=== PATIENT | male | born 1955 | race Caucasian/White ===

== ENCOUNTER 2018-05-01 16:30 | Inpatient (IN) | payer MEDICAID ==
[~2018-05-01] VITALS: Ht 170.2 cm; Wt 57.2 kg
[~2018-05-01 16:30] MED LIST: ACETAMINOPHEN325 M1 PO; AMLODIPINE; ASPIRIN325 PO; BENADRYL25 MG PO; CARVEDILOL PO; CARVEDILOL12.5 MG PO; CLARITIN10 MG PO; DOXYCYCLINE 10100 M1 PO; EZETIMIBE; HUMALOG100 UNIT/1 SUBQ; HYDROCHLOROTHIA25 M1 PO; LANTUS SUBQ; LISINOPRIL; LISINOPRIL20 MG PO; MAGNESIUM OXID400 MG PO; NEPHROCAPS SOFT1 CAP PO; NIACIN500 MG PO; NIASPAN PO; SENNA8.6 MG PO; VICODIN PO
[2018-05-01 16:33] VITALS: BP 142/124
[2018-05-01] MEDS ORDERED: NORVASC10 MG PO (16:35)
[2018-05-01] MEDS ORDERED: PRAVACHOL40 MG PO (16:36)
[2018-05-01] MEDS ORDERED: FLOMAX0.4 MG PO (16:36)
[2018-05-01 17:52] LABS: HEMATOCRIT 31.9 % (42.0-52.0); HEMOGLOBIN 10.8 gm/dL (14.0-18.0); MCH 27.9 pg (26.0-34.0); MCHC 33.9 g/dL (28.0-37.0); MCV 82.1 fL (80.0-100.0); NUCLEATED RBCS 0 /100WBC; PLATELET COUNT* 138 thou/uL (150-400); RBC 3.89 mil/uL (4.50-6.00); RDW-CV 15.2 % (10.5-14.5); WBC 9.2 thou/uL (4.0-11.0)
[2018-05-01 18:00] LABS: APTT 29.6 Seconds (25.0-31.3); INR 1.2; PROTIME 12.6 Seconds (9.20-11.50)
[2018-05-01 18:05] LABS: URINE BILIRUBIN NEGATIVE (Negative); URINE BLOOD 1+ (Negative); URINE CLARITY CLEAR; URINE COLOR YELLOW; URINE GLUCOSE-RANDOM 3+ (Negative); URINE KETONES 1+ (Negative); URINE LEUKOCYTES-REFLEX NEGATIVE (Negative); URINE NITRITE-REFLEX NEGATIVE (Negative); URINE PROTEIN 2+ (Negative); URINE SPECIFIC GRAVITY 1.015 (1.005-1.030); URINE UROBILINOGEN 0.2 E.U./dl (0.2-1.0)
[2018-05-01 18:11] LABS: CALCIUM 7.8 mg/dL (8.5-10.1); CREATININE 2.2 mg/dL (0.6-1.3)
[2018-05-01 18:12] LABS: POTASSIUM 2.3 mmol/L (3.5-5.1)
[2018-05-01 18:16] LABS: BACTERIA-REFLEX None Seen /HPF (None Seen); SQUAMOUS 0-3 Few /LPF (0-3); URINE RBC 0-2 Rare /HPF (0-2); URINE WBC-REFLEX 0-5 Rare /HPF (0-5)
[2018-05-01 18:17] LABS: ALBUMIN 2.2 g/dL (3.4-5.0); TOTAL BILIRUBIN 0.7 mg/dL (<0.1-1.0); TOTAL PROTEIN 4.7 g/dL (6.4-8.2); TROPONIN-I LEVEL 0.14 ng/mL (<0.06)
[2018-05-01 18:17] LABS: CASTS None Seen /LPF (None Seen); CRYSTALS None Seen /LPF (None Seen)
[2018-05-01 18:32] LABS: BE -10.8 mmol/L (-2 to +3); HCO3 17.2 mmol/L (22.0-26.0); PCO2 46.3 mmHg (35.0-45.0)
[2018-05-01 18:35] LABS: PO2 > 488.8 mmHg (75.0-100.0); pH 7.187 (7.340-7.450)
[2018-05-01 18:38] LABS: ABSOLUTE LYMPHOCYTES 1.3 thou/uL (0.8-5.3); ABSOLUTE MONOCYTES 0.1 thou/uL (0.0-1.2); ABSOLUTE NEUTROPHILS 7.8 thou/uL (1.6-8.1); BURR CELLS 4+; PLATELET ESTIMATE ADEQUATE
--- NOTE | 2018-05-01 19:15 | NUR ---
ET TUBE PULLED BACK 24 AT THE LIP BY RESPIRATORY THERAPY. LUNG SOUNDS EQUAL BILATERALLY AND NO GURGGLING NOTED OVER STOMACH. O2 SATS REMAIN >98%
[2018-05-01 19:28] VITALS: BP 55/37
[2018-05-01 21:00] LABS: CALCIUM 7.6 mg/dL (8.5-10.1); CREATININE 2.3 mg/dL (0.6-1.3)
[2018-05-01 21:09] LABS: POTASSIUM 2.3 mmol/L (3.5-5.1)
--- NOTE | 2018-05-01 22:23 | NUR ---
SPOKE WITH DR MELENDEZ VIA TELEPHONE, ET TUBE PLACMENT VIA CXR IN [facility].
[2018-05-01 22:59] VITALS: BP 108/66
[2018-05-01 23:04] LABS: pH 7.186 (7.340-7.450)
[2018-05-01 23:05] LABS: HCO3 9.6 mmol/L (22.0-26.0); PO2 191.9 mmHg (75.0-100.0)
[2018-05-01 23:27] VITALS: BP 100/56
[2018-05-01 23:42] VITALS: BP 106/59
[2018-05-01 23:57] VITALS: BP 109/65
[2018-05-02] VITALS (58 sets, daily range): BP systolic 70–201; BP diastolic 42–109
[2018-05-02 00:48] LABS: CALCIUM 6.7 mg/dL (8.5-10.1); CREATININE 2.2 mg/dL (0.6-1.3); TOTAL BILIRUBIN 0.9 mg/dL (<0.1-1.0); TOTAL PROTEIN 4.7 g/dL (6.4-8.2)
[2018-05-02 00:52] LABS: POTASSIUM 2.3 mmol/L (3.5-5.1)
[2018-05-02 00:53] LABS: MAGNESIUM 1.3 mg/dL (1.8-2.4)
[2018-05-02 00:54] LABS: TROPONIN-I LEVEL 3.31 ng/mL (<0.06)
--- NOTE | 2018-05-02 01:46 | NUR ---
TMAX 90.9, WITHIN RANGE FOR HYPOTHERMIA COOLING PHASE, FLUID WARMER STOPPED AT THIS TIME, NS CONTINUES TO INFUSE 250CC/HR VIA INFUSION PUMP, AWAITING DELIVERY TO INITIATE IVF CHANGE 0.5NA CLORIDE WITH 25KCL AND 10MM PHOS, WILL STOP NS AND INITATE NEW IVF WHEN AVAILABLE.
[2018-05-02 02:06] LABS: HEMATOCRIT 37.9 % (42.0-52.0); MCH 27.5 pg (26.0-34.0); MCHC 33.7 g/dL (28.0-37.0); MCV 81.7 fL (80.0-100.0); RBC 4.64 mil/uL (4.50-6.00); RDW-CV 15.2 % (10.5-14.5); WBC 10.9 thou/uL (4.0-11.0)
[2018-05-02 02:09] LABS: HEMOGLOBIN 12.8 gm/dL (14.0-18.0)
[2018-05-02 03:27] LABS: BE -12.8 mmol/L (-2 to +3); PCO2 24.1 mmHg (35.0-45.0); pH 7.303 (7.340-7.450)
[2018-05-02 03:30] LABS: HCO3 11.7 mmol/L (22.0-26.0); PO2 184.1 mmHg (75.0-100.0)
[2018-05-02 03:50] LABS: ALBUMIN 1.7 g/dL (3.4-5.0); CALCIUM 6.8 mg/dL (8.5-10.1); CREATININE 2.3 mg/dL (0.6-1.3); POTASSIUM 3.1 mmol/L (3.5-5.1); TOTAL BILIRUBIN 0.7 mg/dL (<0.1-1.0); TOTAL PROTEIN 4.1 g/dL (6.4-8.2)
[2018-05-02 06:24] LABS: CK-MB MASS 168.1 ng/mL (<0.5-3.6); PHOSPHORUS* 4.4 mg/dL (2.5-4.9)
[2018-05-02 06:44] LABS: INR 1.3; PROTIME 13.5 Seconds (9.20-11.50)
[2018-05-02 07:09] LABS: APTT 39.1 Seconds (25.0-31.3)
[2018-05-02 08:54] LABS: AMP/METHAMP Negative (Negative); BARBITURATES Negative (Negative); BENZODIAZEPINES Negative (Negative); COCAINE Negative (Negative); METHADONE Negative (Negative); OPIATES Negative (Negative); PCP Negative (Negative); THC Negative (Negative)
[2018-05-02 09:35] LABS: BE -12.4 mmol/L (-2 to +3); HCO3 12.1 mmol/L (22.0-26.0); PCO2 24.5 mmHg (35.0-45.0); PO2 84.7 mmHg (75.0-100.0); pH 7.312 (7.340-7.450)
[2018-05-02 09:53] LABS: CALCIUM 6.9 mg/dL (8.5-10.1); CREATININE 2.4 mg/dL (0.6-1.3)
[2018-05-02 09:54] LABS: POTASSIUM 4.1 mmol/L (3.5-5.1)
[2018-05-02 12:39] LABS: CALCIUM 6.6 mg/dL (8.5-10.1); CREATININE 2.3 mg/dL (0.6-1.3); PHOSPHORUS* 2.6 mg/dL (2.5-4.9)
[2018-05-02 12:41] LABS: MAGNESIUM 0.8 mg/dL (1.8-2.4)
[2018-05-02 16:13] LABS: CALCIUM 6.7 mg/dL (8.5-10.1); CREATININE 2.3 mg/dL (0.6-1.3); MAGNESIUM 1.2 mg/dL (1.8-2.4); PHOSPHORUS* 2.6 mg/dL (2.5-4.9); POTASSIUM 4.1 mmol/L (3.5-5.1)
--- NOTE | 2018-05-02 17:31 | NUR ---
PATIENT PROGRESSING TOWARDS GOALS. CURRENTLY MAINTAINING HYPOTHERMIA, REWARMING TO INITIATE AT 0100 ON 05/03. CURRENTLY SEDATED ON 1MG/HR VERSED FOR SEDATION. OPENES EYES TO STIMULATION. MOVES RIGHT ARM SPONTANEOUSLY. DOES NOT FOLLOW COMMANDS AT THIS TIME. PUPILS MORE EQUAL (3+) AND BRISK AT THIS TIME. NEURO STATED THEY WILL ORDER EEG WHEN REWARMED. TRACING SINUS ARRHYTHMIA TO SINUS RHYTHM WITH CONTROLLED RATE THIS SHIFT. MINIMAL ECTOPY NOTED. REMAINS IN NEOSYNEPHRINE AND LEVOPHED AT THIS TIME PER MED TITRATION RECORDS. FLUID CHALLENGE GIVEN PER PULMONARY AND HOSPITALIST FOR PRESSURES/ELEVATED LACTIC ACID. BMPS COMPLETED Q4H PER NEPHROLOGY. MAGNESIUM BEING REPLACED PER THEM. PATIENT OLIGURIC THIS SHIFT. SEE I&O DOCUMENTATION. REMAINS ON INSULIN GTT AT 3 UNITS/HR. BLOOD SUGARS MORE CONTROLLED. ANION GAP CLOSED, BICARB REMAINS LOW. BLOOD SUGARS TAKEN BY CENTRAL LINE FOR POOR PERIPHERAL PERFUSION/HYPOTHERMIA. TUBES/LINES REMAIN IN PLACE THIS SHIFT. 200 ML GREEN/BILE OUTPUT OUT OF OG TUBE NOTED. MICROTURNED Q2H FOR SKIN INTEGRITY R/T INSTABILITY. PATIENT'S BROTHER HERE TODAY. PER HIM, HE IS THE ONLY LIVING SIBLING. PATIENT HAS NEVER BEEN OR HAD KIDS. PATIENT MADE DNR AT THIS TIME BY FAMILY. PATIENT CURRENTLY LIVES IN A HOME WITH NO ELECTRICITY OR HEAT. HIS FAMILY PAYS HIS BILLS WHEN THEY CAN, BUT HE ROUTINELY REFUSES PLACEMENT OR OTHER ASSISTANCE. HIS [id number] STATED "HE WAS SUPPOSED TO GO TO A DOCTOR'S APPOINTMENT ON FRIDAY, BUT WE FEEL LIKE HE DIDN'T GO BECAUSE HE WAS AFRAID THEY WOULD SEND HIM TO THE HOSPITAL OR PLACE HIM SOMEWHERE." WHEN PATIENT WAS FOUND, HE WAS NAKED WITH JUST BLANKET ON AND WAS SEVERELY HYPOTHERMIC. FOUND BY EXTENDED FAMILY WHO CALLED EMS. PATIENT HAS BEEN UNEMPLOYED FOR AN EXTENDED AMOUNT OF TIME. PER HIS BROTHER, HIS FATHER TOOK CARE OF HIM UNTIL HE 3 YEARS AGO. PATIENT'S FAMILY UPDATED ON PLAN OF CARE AND PROCESS OF REWARMING OVERNIGHT. NO ACUTE CONCERNS NOTED AND THEY ARE IN AGREEMENT WITH CURRENT PLAN OF CARE.
[2018-05-02 21:12] LABS: CALCIUM 6.8 mg/dL (8.5-10.1); CREATININE 2.2 mg/dL (0.6-1.3); MAGNESIUM 1.8 mg/dL (1.8-2.4); PHOSPHORUS* 2.8 mg/dL (2.5-4.9); POTASSIUM 4.5 mmol/L (3.5-5.1)
[2018-05-03] VITALS (11 sets, daily range): BP systolic 80–133; BP diastolic 46–83
[2018-05-03 00:55] LABS: ABSOLUTE BASOPHILS 0.1 thou/uL (0.0-0.2); ABSOLUTE EOSINOPHILS 0.1 thou/uL (0.0-0.7); ABSOLUTE LYMPHOCYTES 1.2 thou/uL (0.8-5.3); ABSOLUTE MONOCYTES 0.4 thou/uL (0.0-1.2); ABSOLUTE NEUTROPHILS 8.3 thou/uL (1.6-8.1); BASOPHILS 1.1 %; EOSINOPHILS 0.5 %; HEMATOCRIT 27.6 % (42.0-52.0); LYMPHOCYTES 12.1 %; MCH 28.4 pg (26.0-34.0); MCHC 35.9 g/dL (28.0-37.0); MCV 79.2 fL (80.0-100.0); MPV 9.1 fl. (7.2-11.1); NUCLEATED RBCS 0 /100WBC; POLYS 82.3 %; RBC 3.48 mil/uL (4.50-6.00); RDW-CV 15.4 % (10.5-14.5); WBC 10.1 thou/uL (4.0-11.0)
[2018-05-03 01:14] LABS: HEMOGLOBIN 9.9 gm/dL (14.0-18.0); PLATELET COUNT* 118 thou/uL (150-400)
[2018-05-03 01:20] LABS: ALBUMIN 1.6 g/dL (3.4-5.0); CALCIUM 7.1 mg/dL (8.5-10.1); CREATININE 2.3 mg/dL (0.6-1.3); MAGNESIUM 1.7 mg/dL (1.8-2.4); PHOSPHORUS* 2.8 mg/dL (2.5-4.9); POTASSIUM 4.3 mmol/L (3.5-5.1); TOTAL BILIRUBIN 0.4 mg/dL (<0.1-1.0); TOTAL PROTEIN 4.3 g/dL (6.4-8.2)
[2018-05-03 01:22] LABS: TROPONIN-I LEVEL 7.81 ng/mL (<0.06)
[2018-05-03 01:31] LABS: APTT 45.1 Seconds (25.0-31.3); INR 1.3; PROTIME 12.9 Seconds (9.20-11.50)
[2018-05-03 05:59] LABS: CALCIUM 6.9 mg/dL (8.5-10.1); CREATININE 2.3 mg/dL (0.6-1.3); MAGNESIUM 2.4 mg/dL (1.8-2.4); POTASSIUM 4.5 mmol/L (3.5-5.1)
--- NOTE | 2018-05-03 07:27 | NUR ---
SLOW PROGRESSION TOWARDS GOALS, CONTINUES THERAPEUTIC HYPOTHERMIA PROTOCOL, TMAX CORE 96.8, OPENS EYES INTERMITTENTLY TO TACTILE STIMULI, NO VISUAL TRACKING, OCCASIONAL NONPURPOSFUL MOVEMENT UPPER AND LOWER EXTREMITIES, VERSED GTT TITRATED FOR SEDATION FROM 1MG/HR TO 3MG/HR, NSR TRACING MEDICAL ASSISTANT CARDIOLOGY, NO ECTOPY NOTED, Q2HOUR BLOOD GLUCOSE LEVELS OBTAINED FROM ARTERIAL LINE R/T POOR CAPILLARY REFILL, INSULIN GTT TITRATED FROM 3UNITS/HOUR TO 0.5 UNIT HOUR DURING SHIFT, ANION GAP REMAINS CLOSED, CONTINUED BMP AND MAG LEVELS [id number], SERMUM MAGNESIUM LEVEL 1.7, 2GM MAGNESIUM IV VIA INFUSION PUMP REPLACEMENT ADMINISTERED, SERUM MAGNESIUM LEVEL INCREASED 2.4, SAO2 =>99 PERCENT THROUGHOUT NOC, NO VENTILATOR CHANGES BY RT DURING SHIFT, POSSIBLE ET TUBE CUFF LEAK, ED DOCTOR TO EVALUATE, TEMP PROBE SOLOMON CATHETER PATENT TO DD OLGURIC 30CC DES URINE OUTPUT. VERBAL BEDSIDE REPORT GIVEN TO NAY GAR.
[2018-05-03 07:47] LABS: BE -7.1 mmol/L (-2 to +3); HCO3 16.1 mmol/L (22.0-26.0); PCO2 25.3 mmHg (35.0-45.0); PO2 106.5 mmHg (75.0-100.0); pH 7.421 (7.340-7.450)
[2018-05-03 09:08] LABS: CALCIUM 7.1 mg/dL (8.5-10.1); CREATININE 2.4 mg/dL (0.6-1.3); MAGNESIUM 2.1 mg/dL (1.8-2.4); PHOSPHORUS* 3.2 mg/dL (2.5-4.9); POTASSIUM 5.1 mmol/L (3.5-5.1)
--- NOTE | 2018-05-03 09:09 | CON ---
[address] [address] CONSULTATION Name: TIANNA GALEANA Room: [address] IN M.R.#: [id number] Admission: 05/01/18 Attend Phys: Marly Manning MD Discharge: Date of : 55 Report #: [id number] THIS REPORT FOR: //name// CC: STEPHANIE physician/PCP Marly Manning REASON FOR CONSULTATION: At the request of Dr. Manning for acute kidney injury, diabetic ketoacidosis. HISTORY OF PRESENT ILLNESS: The patient is a 62-year-old gentleman with a known history of insulin-dependent diabetes mellitus. He was admitted to the hospital yesterday after he was found unresponsive at home by the EMS. The EMS was apparently alerted by the friends or family that the patient has not been seen for some time. He was found to be unresponsive, found lying on the floor with no clothes, only a blanket on. He was hypothermic. There was no pulse. He was resuscitated with CPR was performed. Epinephrine and atropine were given, dopamine was started. The patient was brought to the ER. In the ER, on evaluation, he was found to be markedly hypothermic with a documented temperature of 25.3 centigrade. His blood pressure was reasonably stable at that time, he was found to be in diabetic ketoacidosis with profound respiratory and metabolic acidosis. Blood sugars above 600. Review of the previous history also shows that the patient has had similar presentations in the past with diabetic ketoacidosis, last admission here in this hospital was in 04/2017. Since admission, the patient has had 2 episodes of pulseless electrical activity. He was resuscitated with epinephrine and CPR. He is presently intubated and sedated on 2 pressors, Levophed and Corey-Synephrine. His dopamine is off right now, he has only made 100 mL of urine overnight. He is on 80% FiO2. He is being slowly rewarmed, temperature at this time is 91 Fahrenheit. PAST MEDICAL HISTORY: History of diabetes mellitus, hypertension, dyslipidemia, poor care in the past admissions for similar complaints in the past, history of encephalopathy, acute kidney injury, hyperkalemia, lactic acidosis in the past. HOME MEDICATIONS: Not known well except what is mentioned in the records, it mentions Lispro insulin, Lantus, aspirin, lisinopril, loratadine, niacin, magnesium oxide, Coreg, amlodipine, tamsulosin and pravastatin. PERSONAL, SOCIAL AND FAMILY HISTORY: Unobtainable from the patient, he is intubated and sedated. ALLERGIES: HE IS REPORTEDLY ALLERGIC TO LIPITOR. REVIEW OF SYSTEMS: Besides mentioned above, [place] [address] CONSULTATION Name: TIANNA GALEANA Room: [address] IN [facility]#: [id number] Admission: 05/01/18 Attend Phys: aMrly Manning MD Discharge: Date of : 55 Report #: [id number] PHYSICAL EXAMINATION: GENERAL: The patient is critically sick.unequal pupil size, larger on right VITAL SIGNS: His blood pressure has been in the 70s-80s overnight. He has had 2 episodes of cardiac arrest overnight, PEA arrest both times. LUNGS: Diminished and coarse in the bases bilaterally. SKIN: Appears dry. EXTREMITIES: Cold and clammy. Multiple skin lesions are seen on both arms and legs. He has a right-sided IJ central line. He has a Villatoro catheter in place, which shows dirty cloudy urine. LABORATORY DATA: Reviewed from this morning, his white count is 10.9, hemoglobin is 12.8, platelets are 201,000. Blood gas on admission showed pH of 7.187, pCO2 of 46, pO2 of 488, bicarbonate of 17.2, with a base excess of -10.8, this morning it has improved to 7.303, pCO2 of 24, pO2 of 184, bicarbonate of 11.7. Metabolic panel on admission, creatinine was 2.2, potassium 2.3, glucose level 686, anion gap 26, BUN 38, albumin 2.2. Liver function tests: AST 72, ALT 43, alkaline phosphatase is 134. Troponin 0.14 this morning. Electrolytes: Sodium 144, potassium improved to 3.1, chloride 107, bicarbonate 16, BUN 37, anion gap of 21, slowly improving. Creatinine 2.3, relatively stable. Glucose 428, calcium 6.8. AST 83, ALT 47, albumin 1.7, phosphorus levels checked this morning at 4.4. Troponins are slowly creeping up from 0.14 on admission to 3.76 now. Urinalysis: PH of 5.5, with 2+ protein, ketones and blood, leukocyte esterase negative. As expected, has significant glucosuria. IMAGING STUDIES: A CT of the head has been negative for any acute intracranial pathology. Chest x-rays have been performed serially since admission Chronic lung opacities with bilateral lower lobe diffuse opacities have been noticed. No pneumothorax or consolidating infiltrates have been noted yet. A V/Q scan was performed, which demonstrated low probability perfusion scan for pulmonary embolism. ASSESSMENT: 1. Acute diabetic ketoacidosis. 2. Anion gap metabolic acidosis secondary to the same. 3. Out of hospital cardiac arrest. The patient found down at home, pulseless, was resuscitated, 2 episodes of pulseless arrest since admission. 4. Acute kidney injury. Baseline creatinine 1.6-1.7. NAYANA secondary to hypothermia, volume depletion , possible rhabdomyolysis and ?? sespsis 5. Toxic/metabolic encephalopathy. 6. Hypothermia. 7. Poorly controlled diabetes at baseline. 8. Hypertension. 9. Recurrent admissions for similar problems in the past. 10. Concern for aspiration pneumonitis also. 11 Possible CVA, initial CT head negative [address] [place] [address] CONSULTATION Name: KERVINTIANNA Room: [address] IN [facility]#: [id number] Admission: 05/01/18 Attend Phys: Marly Manning MD Discharge: Date of : 55 Report #: [id number] PLAN: 1. The patient is critically sick at this moment. 2. Has received significant fluid resuscitation overnight with close to 4-5 liters. 3. Made 1400 mL of urine after placement of Villatoro initially suggesting a possible contribution to acute kidney injury from urine retention also. 4. He is presently oliguric based on urine output overnight. 5. Prognosis remains extremely guarded in the present situation. 6. Continue the insulin drip. 7. Continue the pressors as tolerated. 8. Change IV fluids to D5 with half NS with 20 mEq of KCl at 75 mL per hour. 9. Labs including metabolic panel and phosphorus levels every 4 hours. Anticipate his phosphorus levels may drop. 10. Anticipate his renal function will worsen over the next day or two. 11. Respiratory arrest, on ventilator now. 12. Overall prognosis remains extremely guarded. We will follow along closely. Thank you for the referral. Discussed with Dr. Manning personally. <ELECTRONICALLY SIGNED> By: Yahir Erickson MD 05/03/1809 0724 [id number] Erickson MD /nt
--- NOTE | 2018-05-03 10:07 | CON ---
[address] [address] CONSULTATION Name: TIANNA GALEANA Room: [address] IN M.R.#: [id number] Admission: 05/01/18 Attend Phys: Marly Manning MD Discharge: Date of : 55 Report #: [id number] THIS REPORT FOR: //name// CC: [facility] physician/PCP Marly Manning CARDIOLOGY CONSULTATION HISTORY OF PRESENT ILLNESS: I was asked to see the patient by Dr. Marly Manning for evaluation and treatment of a cardiac arrest. This gentleman is intubated and sedated on the ventilator and unresponsive. He was unresponsive even before being sedated. He was found down at home. It is not known how long he was down. He was in full cardiac arrest, I believe the mechanism was asystole. He was naked on his floor with a blanket over him. He has had a similar episode about a year ago when he was found in a chair. He cannot give a history. I do not have any access to any other records at this point. He apparently is diabetic as he had a blood sugar greater than 600 when he was admitted. He is known to have high blood pressure. He has insulin-dependent diabetes. He has hypercholesterolemia and benign prostatic hypertrophy. He was resuscitated at home and brought to the hospital. He had another cardiac arrest of uncertain type last night. I cannot find in the record exactly what it was. The nurse said she was told that it was PDA or EMD; however, he got 2 doses of epinephrine and it resolved. He is currently on Levophed drip. Other problems appear to be a CVA. CT of his head without contrast was negative. He has not had one with contrast nor has he had an MRI as yet. His lactic acid was elevated at 4.9. His creatinine was 2.2. His NT-proBNP was elevated at 1410. Initial troponin was 0.14, but subsequently his troponin elevated to 3.76 at 1:50 a.m. this morning. His initial EKG from yesterday evening at 6:25 p.m. showed atrial fibrillation with slow ventricular response, heart rate was 62. There were nonspecific ST-T abnormalities. There was probable left ventricular hypertrophy. There was a possible incomplete right bundle-branch block. Other history cannot be obtained. He is completely unresponsive and there is no family to speak with. He apparently does not have any family or a DPOA. FAMILY HISTORY: Unobtainable. SOCIAL HISTORY: Unobtainable. REVIEW OF SYSTEMS: Unobtainable. His chest x-ray shows bilateral lower lobe predominant interstitial and airspace opacities representing either pneumonia or pulmonary edema or pulmonary hemorrhage. PHYSICAL EXAMINATION: GENERAL: He presents as a chronically ill appearing white male in no acute distress. He is intubated, sedated, on the ventil[place] [id number] CONSULTATION Name: TIANNA GALEANA David Room: [address] IN ..#: [id number] Admission: 05/01/18 Attend Phys: Marly Manning MD Discharge: Date of : 55 Report #: [id number] VITAL SIGNS: His pulse was 90, blood pressure was 100/60, respirations were 19 and regular, temperature was only about 90. Note his temperature when he came to the ER was 77 for uncertain reasons. HEENT: Of note is that he has a dilated right pupil. He does not have doll's eyes. His right pupil is unresponsive. His head is atraumatic. Eyes are clear. NECK: Supple. There is no jugular venous distention or hepatojugular reflux. Thyroid is not enlarged. There is no adenopathy. SKIN: Warm and dry. Mucous membranes are moist. LUNGS: Showed decreased breath sounds bilaterally in both bases. HEART: Revealed distant first and second heart sound. There was no S4, no S3. No murmurs, rubs, thrills, heaves or gallops. The rhythm was irregularly irregular and the rate was approximately 90. PMI is not displaced. ABDOMEN: Soft, flat, nontender. No palpable masses, no organomegaly. EXTREMITIES: Reveal no cyanosis, clubbing or edema. NEUROLOGIC: The patient was unresponsive and did not move any extremities. IMPRESSION: 1. Status post cardiac arrest yesterday evening. 2. Probable cerebrovascular accident. 3. Atrial fibrillation. 4. Hypothermia. 5. Diabetic ketoacidosis. 6. Possible lactic acidosis, at least elevated lactate levels. 7. Rhabdomyolysis. Note, his CPK was 1831. Note, his CK-MB was 168.1. 8. Possible myocardial infarction. 9. Acute respiratory failure. 10. Renal failure with an estimated GFR of only approximately 30 and a creatinine of 2.3. 11. Probable pneumonia. 12. Congestive heart failure. 13. Elevated troponin, possible myocardial infarction. RECOMMENDATION: I would continue his current support. He will need an MRI of his head. I would treat him with antibiotics as well. Treat his diabetes. He is being warmed with a warming blanket. I would keep him around 90-93 degrees because of his recent cardiac arrest. I will have Renal see him about his renal failure. PROGNOSIS: Note this man's prognosis is guarded at best. Overall, this prognosis is probably poor. [address] [place] [address] CONSULTATION Name: TIANNA GALEANA Room: [address] IN M.R.#: [id number] Admission: 05/01/18 Attend Phys: Marly Manning MD Discharge: Date of : 55 Report #: [id number] Thank you very much for asking me to see the patient. If there are any questions, please feel free to contact me. <ELECTRONICALLY SIGNED> By: Mitch Prater MD, FACMika 05/03/18 1007 0905 [id number]. Jorden Prater MD, FACMika /nt
--- NOTE | 2018-05-03 10:17 | CON ---
[address] [address] CONSULTATION Name: TIANNA GALEANA Room: [address] IN .R.#: [id number] Admission: 05/01/18 Attend Phys: Marly Manning MD Discharge: Date of : 55 Report #: [id number] THIS REPORT FOR: //name// CC: STEPHANIE physician/PCP Marly Manning DATE OF SERVICE: 05/02/2018 HISTORY OF PRESENT ILLNESS: The patient is a 62-year-old male who was found at home. When EMS arrived, the patient had a body temperature of 77 degrees. He was lying under a sheet with nothing on. When he came to the Emergency Room, his temperature was 25.3. The patient is now warmed to a temperature of 91.6. At 1:00 a.m. the warming process will begin. The patient came to the Emergency Room with blood sugar of 686. On the ventilator, the patient is sedated and has no spontaneous movements. PAST MEDICAL HISTORY: Acute renal failure, diabetic ketoacidosis, hyperlipidemia, hypertension. PAST SURGICAL HISTORY: Negative. MEDICATIONS: At home, amlodipine 10 mg daily, Flomax 0.4 mg daily, Pravachol 40 mg daily, Humalog and Lantus insulin, aspirin 325 mg daily, senna 8.6 mg daily, lisinopril 40 mg daily, Claritin 10 mg daily, niacin 500 mg at bedtime, magnesium oxide 400 mg b.i.d., Coreg 12.5 mg b.i.d. ALLERGIES: ATORVASTATIN. VITAL SIGNS: Temperature is 32.9, pulse rate 78, respiratory rate 18 on the ventilator, blood pressure 88/51, bedside pulse oximetry 99% on the ventilator. LABORATORY DATA: White blood cell count 10.9, hemoglobin 12.8, hematocrit 37.9, platelet count 201,000. INR 1.3. Urinalysis 2+ protein, 1+ ketones, 1+ blood, 3+ glucose. On arrival in the Emergency Room, the blood gas shows a pH of 7.186, pCO2 of 26, pO2 of 191, oxygen saturation 96.1%. Chemistry profile: Sodium 141, potassium 4.1, chloride 109, carbon dioxide 18, BUN 33, creatinine 2.3, glucose 178. Lactic acid 6.3, calcium 6.7. Toxicology screen negative. IMAGING STUDIES: CT scan of the head unremarkable. NEUROLOGIC: Pupils minimally reactive to light. Oculocephalic and corneal reflex is absent. There is no spontaneous movement of the extremities. The patient was examined while on a Versed drip. IMPRESSION: The patient will begin the warming protocol around 1:00 a.m., [place] [address] CONSULTATION Name: TIANNA GALEANA Room: [address] IN ..#: [id number] Admission: 05/01/18 Attend Phys: Marly Manning MD Discharge: Date of : 55 Report #: [id number] may not be warm enough tomorrow to do an electroencephalogram so this may have to wait until Friday. Obviously with such a low body temperature and diabetic ketoacidosis, his prognosis is very guarded. I will reevaluate the patient tomorrow morning. <ELECTRONICALLY SIGNED> By: Brooke Olvera DO 05/03/18 1017 1641 [id number] Olvera DO /nt
--- NOTE | 2018-05-03 13:59 | NUR ---
re: Pharmacy to manage TPN Orders given for pharmacy to dose TPN per Dr. Manning. Patient has been rewarmed after a CODE ICE and is intubated. Per calculations used actual body weight 56.2 kg and a stress factor of 1.8. Note mentions that patient has NAYANA so will adjust protein g/kg/day need. Protein= 56.2 g/24 hours, CHO= 362.5 g/24 hours, and fats= 82.2 g/24 hours. The TPN was adjusted to decrease the potassium chloride to 17 mEq/L as BMP showed potassium at high end of normal. Day 1 of TPN will be 30 mL/hr and then if tolerated will increase day 2 to 54 mL/hr. Thank you for this consult. Pharmacy will contiue to follow and monitor.
[2018-05-03 16:24] LABS: CREATININE 2.7 mg/dL (0.6-1.3); PHOSPHORUS* 3.5 mg/dL (2.5-4.9); POTASSIUM 5.3 mmol/L (3.5-5.1)
--- NOTE | 2018-05-03 17:18 | NUR ---
PT CARE ASSUMED AFTER REPORT. SR ON MONITOR. PT REINTUBATED THIS AM BECAUSE PREVIOUS CUFF WAS BLOWN. L ART LINE. SOLOMON TO DD WITH ONLY 70CC OUT THIS SHIFT. LEVOPHED TITRATED DOWN. EVON AND VERSED TITRATED OFF. INSILIN GTT D/C'D. NO S/S OF PAIN. NOT PROGRESSING TOWARDS GOALS.
[2018-05-04] VITALS (61 sets, daily range): BP systolic 84–127; BP diastolic 46–66
[2018-05-04 04:34] LABS: HEMATOCRIT 20.7 % (42.0-52.0); MCH 28.2 pg (26.0-34.0); MCHC 35.2 g/dL (28.0-37.0); MCV 80.2 fL (80.0-100.0); MPV 10.3 fl. (7.2-11.1); RBC 2.58 mil/uL (4.50-6.00); RDW-CV 16.3 % (10.5-14.5); WBC 9.8 thou/uL (4.0-11.0)
[2018-05-04 04:45] LABS: HEMOGLOBIN 7.3 gm/dL (14.0-18.0)
[2018-05-04 05:06] LABS: ALBUMIN 1.3 g/dL (3.4-5.0); CALCIUM 7.2 mg/dL (8.5-10.1); CREATININE 3.1 mg/dL (0.6-1.3); PHOSPHORUS* 3.8 mg/dL (2.5-4.9); POTASSIUM 4.8 mmol/L (3.5-5.1); TOTAL BILIRUBIN 0.4 mg/dL (<0.1-1.0); TOTAL PROTEIN 3.9 g/dL (6.4-8.2)
[2018-05-04 06:01] LABS: BE -5.8 mmol/L (-2 to +3); HCO3 18.2 mmol/L (22.0-26.0); PCO2 30.2 mmHg (35.0-45.0); pH 7.399 (7.340-7.450)
--- NOTE | 2018-05-04 07:00 | NUR ---
PROGRESSING TOWARDS GOALS, SEE COMPUTERIZED ASSESSMENT CHARTING FOR FURTHER DETAILS, OPENS EYES TO TACTILE AND VERBAL STIMULI, VISUAL TRACKING, LEFT EYE OPENING >RIGHT EYE, NODDING HEAD YES/NO TO SIMPLE QUESTIONS APPEARS APPROPRIATE WITH GIVEN EXTRA TIME TO RESPOND, GENERALIIZED WEAKNESS, BILAT HAND CRT ON [place] UNEQUAL LEFT HAND INFORMATICIST >RIGHT HAND, MOVING BILAT LOWER EXTREMITIES, BILAT WRIST RESTRAINTS INITATED FOR SAFETY, PT ATTEMPTING TO PULL AT ETT, EMOTIONAL SUPPORT PROVIDED, AFEBRILE, MAINTAINING TMAX WNL, REMAINS OLIGURIC, TEMP PROBE SOLOMON CATHETER PATENT TO DD 150CC DES URINE OUTPUT, REMAINS NSR TRACING HOUSE SITTER WIHTOUT ECTOPY NOTED. FULL BED BATH PROVIDED. REMAINS OFF SEDATION ALL SHIFT.
[2018-05-04 08:41] LABS: CALCIUM 7.3 mg/dL (8.5-10.1); CREATININE 3.2 mg/dL (0.6-1.3); PHOSPHORUS* 3.8 mg/dL (2.5-4.9); POTASSIUM 4.6 mmol/L (3.5-5.1)
--- NOTE | 2018-05-04 10:14 | EKG ---
[place] [address] ELECTROCARDIOGRAM REPORT Name: TIANNA GALEANA Room: [address] ADM IN M.R.#: [id number] Admission: 05/01/18 Attend Phys: Marly Manning MD Discharge: Date of : 55 Report #: [id number] THIS REPORT FOR: //name// [facility] ED Test Date: 2018-05-01 Test Time: 18:25:02 Pat Name: TIANNA GALEANA Department: Room: [facility] Gender: Director Of Cardiology Service Line: Manny ALMANZA : 1955 Requested By: Omkar Gomez Order Number: [id number] MD: Kevyn Leal Measurements Intervals [place] Rate: 62 P: [place]: QRS: -13 QRSD: 136 T: 7 QT: 658 QTc: 669 Interpretive Statements Atrial fibrillation Prolonged QT interval Compared to ECG 05/12/2017 21:04:45 Prolonged QT interval now present Sinus tachycardia no longer present Myocardial infarct finding no longer present Electronically Signed On 05-04-2018 10:13:52 [employer] TEST ENGINE[employer] by Kevyn Leal [email or web address] <ELECTRONICALLY SIGNED> By: Kevyn Leal MD, FACC 05/04/18 1013 1825 1825 Kevyn Leal MD, [facility] /EPI
--- NOTE | 2018-05-04 10:21 | EKG ---
[place] [address] ELECTROCARDIOGRAM REPORT Name: TIANNA GALEANA Room: [address] ADM IN M.R.#: [id number] Admission: 05/01/18 Attend Phys: Marly Manning MD Discharge: Date of : 55 Report #: [id number] THIS REPORT FOR: //name// [facility] Test Date: 2018-05-02 Test Time: 09:36:00 Pat Name: TIANNA GALEANA Department: Room: [address] Gender: M Campus Security Director: : 1955 Requested By: Mitch Prater Order Number: [id number] Reading MD: Kevyn Leal Measurements Intervals [place] Rate: 89 P: 64 [place]: 165 QRS: -55 QRSD: 86 T: 79 QT: 409 QTc: 498 Interpretive Statements Sinus rhythm Left anterior fascicular block Anterior infarct, old Electronically Signed On 05-04-2018 10:20:58 TABLEMAN by Kevyn Leal [email or web address] <ELECTRONICALLY SIGNED> By: Kevyn Leal MD, [facility] 05/04/18 1020 0936 0936 Kevyn Leal MD, FACC /EPI
--- NOTE | 2018-05-04 12:26 | EKG ---
[place] [address] ELECTROCARDIOGRAM REPORT Name: TIANNA GALEANA Room: [address] ADM IN M.R.#: [id number] Admission: 05/01/18 Attend Phys: Marly Manning MD Discharge: Date of : 55 Report #: [id number] THIS REPORT FOR: //name// [facility] Test Date: 2018-05-03 Test Time: 10:28:35 Pat Name: TIANNA GALEANA Department: Room: [address] Gender: M Opticianry Teacher: : 1955 Requested By: Mitch Prater Order Number: [id number] Reading MD: Kevyn Leal Measurements Intervals [place] Rate: 79 P: [place]: QRS: -45 QRSD: 83 T: 81 QT: 432 QTc: 496 Interpretive Statements Accelerated junctional rhythm low voltage Anterior infarct, old Compared to ECG 05/12/2017 21:04:45 Accelerated junctional rhythm now present Sinus no longer present Myocardial infarct finding still present Electronically Signed On 05-04-2018 12:25:53 CHIEF RELAY TESTER by Kevyn Leal [email or web address] <ELECTRONICALLY SIGNED> By: Kevyn Leal MD, [facility] 05/04/18 1225 1028 1028 Kevyn Leal MD, [facility] /EPI
--- NOTE | 2018-05-04 14:07 | NUR ---
WOUND NURSE: PATIENT SEEN TO ADDRESS LESIONS ON BILATERAL KNEES AND RIGHT LOWER LEG. PATIENT PRESENTS WITH MULTIPLE SMALL CIRIFORM LESIONS WHICH PRESENT WITH 1CM REDDISH-BROWN INTACT SCABS. THERE IS NO DRAINAGE OR PERIWOUND REDNESS, WARMTH, OR INDURATION NOTED. PLAN TO KEEP OPEN TO AIR LONG THE SCABS REMAIN STABLE AND INTACT.
[2018-05-04 16:32] LABS: HEMATOCRIT 22.7 % (42.0-52.0); HEMOGLOBIN 7.8 gm/dL (14.0-18.0); MCH 28.2 pg (26.0-34.0); MCHC 34.4 g/dL (28.0-37.0); MPV 9.2 fl. (7.2-11.1); RBC 2.76 mil/uL (4.50-6.00); RDW-CV 16.1 % (10.5-14.5); WBC 9.4 thou/uL (4.0-11.0)
[2018-05-04 16:41] LABS: CALCIUM 7.7 mg/dL (8.5-10.1); CREATININE 3.2 mg/dL (0.6-1.3); PHOSPHORUS* 3.9 mg/dL (2.5-4.9); POTASSIUM 4.8 mmol/L (3.5-5.1)
--- NOTE | 2018-05-04 16:56 | 2DMMODE ---
[place] [address] 2 D/M-MODE ECHOCARDIOGRAM Name: TIANNA GALEANA Room: [address] IN [facility]#: [id number] Admission: 05/01/18 Attend Phys: Marly Manning, Discharge: Date of : 55 Date of Service: 05/04/18 1656 Report #: [id number] THIS REPORT FOR: //name// APPROVED REPORT Study performed: 05/04/2018 10:16:23 EXAM: Comprehensive 2D, Doppler, and color-flow Echocardiogram Patient Location: In-Patient Room #: [facility] Status: routine BSA: 1.64 HR: 93 bpm BP: 106/57 mmHg Rhythm: NSR Other Information Study Quality: Good Indications Abnormal ECG Cardiac arrest, DKA, Hypokalemia 2D Dimensions IVSd: 9.40 (7-11mm) LVOT Diam: 17.75 (18-24mm) LVDd: 39.45 mm PWd: 8.28 (7-11mm) Ascending Ao: 33.30 (22-36mm) LVDs: 23.20 (25-40mm) Aortic Root: 29.35 mm Aortic Valve LVOT Max P.67 mmHg LVOT Mean P.34 mmHg LVOT Max V: 0.82 m/s LVOT Mean V: 0.53 m/s LVOT V1 VTI: 14.64 cm Mitral Valve E/A Ratio: 1.38 MV Decel. Time: 157.75 ms MV E Max Anthony.: 0.86 m/s MV PHT: 45.75 ms MVA (PHT): 4.81 [place] [address] 2 D/M-MODE ECHOCARDIOGRAM Name: KERVINTIANNA T Room: [address] IN [facility].#: [id number] Admission: 05/01/18 Attend Phys: Marly Manning, Discharge: Date of : 55 Date of Service: 05/04/18 1656 Report #: [id number] E/Lateral E': 6.62 E/Medial E': 9.56 Medial E' Nathony.: 0.09 m/s Lateral E' Anthony.: 0.13 m/s Pulmonary Valve PV Peak Anthony.: 0.76 m/s PV Peak Gr.: 2.33 mmHg Tricuspid Valve RAP Estimate: 5.00 mmHg TR Peak Gr.: 30.95 mmHg RVSP: 35.00 mmHg PA Pressure: 35.00 mmHg Left Ventricle The left ventricle is normal size. There is normal LV segmental wall motion. Mild concentric left ventricular hypertrophy. Left ventricular systolic function is normal. The left ventricular ejection fraction is within the normal range. LVEF is 55-60%. The left ventricular diastolic function is normal. Right Ventricle The right ventricle is normal size. The right ventricular systolic function is normal. Atria The left atrium size is normal. The right atrium size is normal. Aortic Valve The aortic valve is normal in structure. No aortic regurgitation is present. There is no aortic valvular stenosis. Mitral Valve The mitral valve is normal in structure. Trace mitral regurgitation. No evidence of mitral valve stenosis. Tricuspid Valve The tricuspid valve is normal in structure. Mild tricuspid regurgitation estimated pa pressure 40 mm Hg Pulmonic Valve The pulmonary valve is normal in structure. Mild pulmonic regurgitation. Great Vessels The aortic root is normal in size. IVC is normal in size and collapses >50% [place] [address] 2 D/M-MODE ECHOCARDIOGRAM Name: TIANNA GALEANA Room: [address] IN .R.#: [id number] Admission: 05/01/18 Attend Phys: Marly Manning, Discharge: Date of : 55 Date of Service: 05/04/18 1656 Report #: [id number] Pericardium Mild pericardial effusion. Left pleural effusion. <Conclusion> Mild concentric left ventricular hypertrophy. LVEF is 55-60%. Mild tricuspid regurgitation estimated pa pressure 40 mm Hg Mild pericardial effusion. Left pleural effusion. <ELECTRONICALLY SIGNED> By: Kevyn Leal MD, FACC 05/04/181655 55 55 Kevyn Leal MD, FAC /INF
--- NOTE | 2018-05-04 18:51 | NUR ---
PATIENT CONTINUES TO SLOWLY PROGRESS TOWARDS GOALS. REMAINS ON VENTILATOR WITH NO SEDATION. FIO2 TITRATED DOWN TO 35%. PATIENT PUPILS EQUAL AND REACTIVE, HOWEVER PATIENT OPENS LEFT EYE MORE THAN THE RIGHT EYE AND MOVES THE RIGHT SIDE MORE THAN THE LEFT SIDE. EEG COMPLETED TODAY, DR BOYLE WOULD LIKE TO DO CT WHEN PATIENT IS ABLE TO COOPERATE BETTER. PATIENT TITRATED TO 6 MCG/MIN. STARTED ON TUBE FEEDINGS TODAY. NEPHROLOGY WOULD LIKE TO AVOID DIALYSIS. PRODUCING MORE URINE THIS SHIFT. BROTHER UPDATED ON PLAN OF CARE. DENIES FURTHER CONCERNS ABOUT PATIENT CARE.
[2018-05-05] VITALS (7 sets, daily range): BP systolic 91–127; BP diastolic 45–61
[2018-05-05 01:53] LABS: CALCIUM 8.1 mg/dL (8.5-10.1); CREATININE 3.5 mg/dL (0.6-1.3); MAGNESIUM 1.9 mg/dL (1.8-2.4); POTASSIUM 4.6 mmol/L (3.5-5.1)
[2018-05-05 04:29] LABS: HEMATOCRIT 20.1 % (42.0-52.0); HEMOGLOBIN 7.1 gm/dL (14.0-18.0); MCH 29.1 pg (26.0-34.0); MCHC 35.5 g/dL (28.0-37.0); MCV 81.9 fL (80.0-100.0); MPV 9.1 fl. (7.2-11.1); RBC 2.45 mil/uL (4.50-6.00); WBC 8.4 thou/uL (4.0-11.0)
[2018-05-05 04:45] LABS: ALBUMIN 1.3 g/dL (3.4-5.0); CALCIUM 7.7 mg/dL (8.5-10.1); CREATININE 3.6 mg/dL (0.6-1.3); MAGNESIUM 1.9 mg/dL (1.8-2.4); POTASSIUM 4.6 mmol/L (3.5-5.1); TOTAL BILIRUBIN 0.4 mg/dL (<0.1-1.0); TOTAL PROTEIN 4.1 g/dL (6.4-8.2)
[2018-05-05 05:55] LABS: BE -4.9 mmol/L (-2 to +3); PCO2 29.3 mmHg (35.0-45.0); PO2 99.4 mmHg (75.0-100.0); pH 7.429 (7.340-7.450)
--- NOTE | 2018-05-05 07:58 | NUR ---
0730 ASSUMED CARE OF PATIENT. PLEASE SEE DOCUMENTED ASSESSMENT. PT HAS BEEN TITRATED OFF OF LEVOPHED AT THIS TIME. INCONTINENT OF STOOL.
--- NOTE | 2018-05-05 08:09 | NUR ---
PROGRESSING TOWARDS GOALS, ALERT WITH EYES OPEN TO VERBAL/TACTILE STIMULI, ABLE TO ANSWER YES/NO SIMPLE QUESTIONS, WITH EXTRA TIME. LEFT SIDED WEAKNESS, RIGHT EYE DROOP, NO CHANGE IN VENTILATOR SETTINGS DURING NOC BY RT, RESTLESS AGITATED WITH BED BATH AND ORAL CARE, ORIENTED PLACE, TIME, SITUATION AND EMOTIONAL SUPPORT PROVIDED PRN, FIO2 =>99%, TITRATED OF LEVOPHED MAP =>60, OFF ALL VASOPRESSORS, REMAINS OFF SEDATION, GENRALIZED 2-3+EDEMA, MODERATE GENTILE/BEIGE SECRETIONS INLINE SUCTIONING. CORE TEMP =>96.4, NO S/S ACTIVE BLEEDING NOTED. HUMALOG SS INSULIN Q4 PER ORDER, ONE UNIT PLT GIVEN WHEN AVAILABLE DURING NOC ORDERED. NO S/S ADVERSE TRANSFUSION REACTION NOTED.
[2018-05-05 08:19] LABS: CALCIUM 7.9 mg/dL (8.5-10.1); CREATININE 3.7 mg/dL (0.6-1.3); PHOSPHORUS* 4.5 mg/dL (2.5-4.9); POTASSIUM 4.6 mmol/L (3.5-5.1)
--- NOTE | 2018-05-05 08:25 | NUR ---
DR AYALA HERE AND 30 MINUTE VENTILATOR WEANING TRIAL STARTED. SPOKE WITH DR JOSE ON PHONE AND UPDATED ON PATIENT STATUS. HE WILL REOUND IN A FEW HOURS.
[2018-05-05 08:27] LABS: MAGNESIUM 1.9 mg/dL (1.8-2.4)
--- NOTE | 2018-05-05 09:09 | NUR ---
DR BOYLE HERE AND WANTS HEAD CT TODAY. HE WILL DISCUSS WITH DR AYALA
--- NOTE | 2018-05-05 10:34 | NUR ---
CT HEAD COMPLETED WITH USE OF VERSED. CHEST FILM COMPLETED
--- NOTE | 2018-05-05 10:57 | NUR ---
Nutrition: Recommend Nepro @ goal rate 40mL/hr. See RD Reassessment form for details.
--- NOTE | 2018-05-05 15:52 | NUR ---
WOUND CARE NOTE: MULTIPLE CONSULTS RECEIVED. PATIENT HAS AN INTACT BLISTER TO THE LEFT KNEE. SEROUS FILLED. RECOMMEND LEAVING OPEN TO AIR. IF RUPTURES, WOULD RECOMMEND USING OPTIFOAM AG OR VASELINE GAUZE UNTIL HEALED. DISCOLORATION NOTED TO HIS SACRAL AREA. UNABLE TO DETERMINE AT THIS TIME IF IT IS A DEEP TISSUE INJURY OR AN AREA OF ECCHYMOSIS. WILL MONITOR EVOLVES. RECOMMEND TURN Q2 HOURS WEDGES FOR TURNING-IN ROOM LOW AIR LOSS MATTRESS-IN PLACE BARRER OINTMENT BID AND PRN INCONTINENCE NO BRIEFS IN BED LIMIT LAYERS OF LINEN UNDER PATIENT
--- NOTE | 2018-05-05 17:10 | NUR ---
PATIENT MAKING SOME PROGRESS TOWARDS GOALS. TOLERATED 30 MINUTE VENTILATOR WEANING TRIAL WITHOUT ABG.CT OF HEAD COMPLETED. MINIMAL SEDATION TODAY AND PATIENT ABLE TO FOLLOW COMMANDS. TUBE FEEDING AT GOAL. OUTPUT CHARTED. BROTHER VISITED. PLAN IS FOR REPEAT WEANING TRIAL TOMORROW,POSSIBLE EXTUBATION
--- NOTE | 2018-05-06 01:00 | NUR ---
RESLTESS, PULLING AGAINST SOFT WRIST RESTRAINTS, BITING DOWN ON ETT TUBE WITH ORAL CARE, EMOTIONAL SUPPORT PROVIDED, ORIENTED TO PLACE, TIME, SITUATION, VERSED 2MG IVP GIVEN X1 FOR SEDATION, VERSED EFFECTIVE, NO FURTHER PULLING AGAINST WRIST RESTRAINGS, REMAINS AGITATED WITH ORAL CARE WITHOUT BITING ON ETT, FULL BED BATH GIVEN, REMAINS GENERALIZED EDEMA +2, +3 SCROTAL EDEMA, SCROTUM ELEVATED WITH PILLOWCASE FOLDED INTO SCROTAL SLING, NOROTHERMIC DURING FIRST PART OF NOC BEFORE BED BATH GIVEN, TEMP DECREASED 96.3 FOLLOWING BED BATH, CLAUDIO BRASWELL INIATED FOR TEMPERATURE REGULATION.
[2018-05-06 03:07] LABS: HEMATOCRIT 20.9 % (42.0-52.0); HEMOGLOBIN 7.2 gm/dL (14.0-18.0); MCH 28.3 pg (26.0-34.0); MCHC 34.3 g/dL (28.0-37.0); MCV 82.5 fL (80.0-100.0); MPV 8.6 fl. (7.2-11.1); RBC 2.53 mil/uL (4.50-6.00); RDW-CV 16.2 % (10.5-14.5); WBC 7.4 thou/uL (4.0-11.0)
[2018-05-06 03:24] LABS: ALBUMIN 1.2 g/dL (3.4-5.0); CALCIUM 7.5 mg/dL (8.5-10.1); CREATININE 4.2 mg/dL (0.6-1.3); MAGNESIUM 1.7 mg/dL (1.8-2.4); POTASSIUM 4.5 mmol/L (3.5-5.1); TOTAL BILIRUBIN 0.3 mg/dL (<0.1-1.0); TOTAL PROTEIN 4.2 g/dL (6.4-8.2)
--- NOTE | 2018-05-06 03:48 | NUR ---
CLAUDIO BRASWELL OFF, TMAX 98.1 CORE
[2018-05-06 06:00] LABS: BE -3.2 mmol/L (-2 to +3); HCO3 20.3 mmol/L (22.0-26.0); PCO2 30.3 mmHg (35.0-45.0); PO2 105.3 mmHg (75.0-100.0); pH 7.444 (7.340-7.450)
[2018-05-06 10:13] VITALS: BP 105/53
--- NOTE | 2018-05-06 10:47 | NUR ---
CONTINUE TO FOLLOW. NO FAMILY AVAILABLE. PER NURSING, PT'S BROTHER/OSMANI HAS BEEN IN WELL HIS . OSMANI [phone]. PT TO HAVE TTT TODAY. WILL FOLLOW
[2018-05-06 11:52] LABS: BE -5.6 mmol/L (-2 to +3); HCO3 17.7 mmol/L (22.0-26.0); PCO2 27.1 mmHg (35.0-45.0); PO2 80.1 mmHg (75.0-100.0); pH 7.434 (7.340-7.450)
[2018-05-06 12:13] VITALS: BP 113/54
--- NOTE | 2018-05-06 13:04 | NUR ---
REPORT FROM CONG CREWS. ASSESSMENT CHARTED. AFEBRILE. PT HAD TTT TODAY. POST ABG'S. PHYSICAN WILL LEAVE PT INTUBATED TODAY. ANOTHER TRIAL TOMORROW. PT WILL HAVE ABDOMINAL ULTRASOUND TODAY. PT NPO. OFF PRESSORS. VITALS STABLE. WILL CONTINUE TO MONITOR.
[2018-05-06 14:13] VITALS: BP 105/50
[2018-05-06 16:13] VITALS: BP 114/60
--- NOTE | 2018-05-07 02:54 | NUR ---
HYPOTHERMIC, CORE TEMP 96.4, CLAUDIO BRASWELL STARTED FOR TEMP REGULATION.
[2018-05-07 04:40] LABS: HEMATOCRIT 21.5 % (42.0-52.0); HEMOGLOBIN 7.3 gm/dL (14.0-18.0); MCH 28.2 pg (26.0-34.0); MCHC 33.9 g/dL (28.0-37.0); MCV 83.2 fL (80.0-100.0); MPV 8.7 fl. (7.2-11.1); RBC 2.58 mil/uL (4.50-6.00)
--- NOTE | 2018-05-07 04:50 | NUR ---
CLAUDIO BRASWELL TURNED OFF, CORE TEMP 98.2
[2018-05-07 04:59] LABS: ALBUMIN 1.2 g/dL (3.4-5.0); CALCIUM 8.4 mg/dL (8.5-10.1); CREATININE 4.9 mg/dL (0.6-1.3); POTASSIUM 4.2 mmol/L (3.5-5.1); TOTAL BILIRUBIN 0.9 mg/dL (<0.1-1.0); TOTAL PROTEIN 4.5 g/dL (6.4-8.2)
--- NOTE | 2018-05-07 07:54 | NUR ---
SLOW PROGRESSION TOWARDS GOALS, SEE COMPUTERIZED ASSESSMENT CHARTING FOR FURTHER DETAILS, ALERT WITH EYES OPEN, ASYMETRICAL MOVEMENT UPPER EXTREMITIES RIGHT < LEFT, VERSED 2MG IVP GIVEN X1 FOR RESTLESSNESS, PULLING AGAINST WRIST RESTRAINTS, EMOTIONAL SUPPORT PROVIDED, NODS HEAD YES/NO WITH EXTRA TIME GIVEN, TO SIMPLE QUESTIONS, INCONTINENT OF LIQUID BROWN STOOL MULTIPLE TIMES, FLEISEAL FECAL TUBE PLACED TO PROTECT SKIN INTEGRITY. CLAUDIO HUGGER EFFECTIVE FOR TEMPATURE MANAGEMENT, ANXIOUS WITH ORAL CARE AND BED BATH, EMOTIONAL SUPPORT PROVIDED. MINIMAL BEIGE SECRETIONS SUCTIONED FROM INLINE ETT. TOLERATING NEPRO TUBE FEEDING VIA OG 40CC/HR WITH 150CC FREE H20 FLUSHES [id number] ORDERED, GASTRIC RESIDUAL =<15CC DURING NOC. REMAINS NSR TRACING MATE FISHING VESSEL. TEMP PROBE SOLOMON CATHETER PATENT DD 600CC YELLOW URINE. BED ALARM ON FOR SAFETY.
[2018-05-07 08:14] VITALS: BP 148/78
[2018-05-07 08:23] LABS: BE -5.7 mmol/L (-2 to +3); HCO3 18.6 mmol/L (22.0-26.0); PCO2 31.5 mmHg (35.0-45.0); pH 7.388 (7.340-7.450)
[2018-05-07 10:13] VITALS: BP 140/66
[2018-05-07 12:13] VITALS: BP 146/70
[2018-05-07 14:13] VITALS: BP 146/71
--- NOTE | 2018-05-07 14:29 | NUR ---
PT REMAINS ON VENT BUT PER NURSING WITH SOME IMPROVEMENT. CALL PLACED TO BROTHER/NEENA, HE CALLED BACK. STATED HE IS PT'S BROTHER. HE TALKS TO PT ON PHONE BUT NOT CONSISTENT. STATED PT LIVES IN A HOUSE THAT HE HAS LIVED IN HIS WHOLE LIFE, PT WAS CARED FOR BY PARENTS AND WHEN FATHER , NEENA STATES HE 'GAVE THE HOUSE' TO HIM. HE CONFIRMED PT HAS NO RUNNING WATER OR HEAT OTHER THAN SPACE HEATERS. HE STATED PT HAD ELECTRICITY BUT IS BEHIND ON BILL. 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 HE THINKS PT GOES TO A DR AT [place] AND USES MEDICAID TRANSPORT. PT DOESN'T HAVE DPOA. HE SAW PT ABOUT A WEEK PRIOR TO ADMIT. PT DOES HAVE A FRIEND ABBE WHO LIVES NEXT DOOR BUT NEENA STATED HE HAS HEALTH ISSUES AND NOT ABLE TO ASSIST PT. NEENA GALEANA [phone] UNSURE OF WHAT PT'S NEEDS MAY BE, ASSURED NEENA KEEN WOULD CONTINUE TO UPDATE HIM AND DISCUSS ISSUES THEY ARISE. WILL FOLLOW
[2018-05-07 16:13] VITALS: BP 126/57
[2018-05-07 17:43] VITALS: BP 112/52
--- NOTE | 2018-05-07 20:21 | NUR ---
DR AYALA HERE SEEN PT, NEW ORDER RECEIVED FOR FENTANYL 25MCG IVP Q4PRN FOR ANXIETY/AGITATION OR PAIN, COMMUNICATED ORDER WITH PT, WILL INITIATE ORDER AND CONTINUE TO MONITOR.
[2018-05-08] VITALS (10 sets, daily range): BP systolic 105–131; BP diastolic 53–107
--- NOTE | 2018-05-08 04:00 | NUR ---
NEPRO TUBE FEEDING VIA OG STOPPED ON HOLD FOR AM TTT.
[2018-05-08 04:35] LABS: HEMATOCRIT 20.6 % (42.0-52.0); HEMOGLOBIN 7.2 gm/dL (14.0-18.0); MCH 28.5 pg (26.0-34.0); MCHC 34.8 g/dL (28.0-37.0); MCV 81.8 fL (80.0-100.0); MPV 8.4 fl. (7.2-11.1); RBC 2.52 mil/uL (4.50-6.00); RDW-CV 16.4 % (10.5-14.5); WBC 3.9 thou/uL (4.0-11.0)
[2018-05-08 04:58] LABS: ALBUMIN 1.1 g/dL (3.4-5.0); CALCIUM 8.7 mg/dL (8.5-10.1); CREATININE 5.5 mg/dL (0.6-1.3); MAGNESIUM 2.2 mg/dL (1.8-2.4); POTASSIUM 4.7 mmol/L (3.5-5.1); TOTAL PROTEIN 4.6 g/dL (6.4-8.2)
[2018-05-08 05:40] LABS: BE -5.8 mmol/L (-2 to +3); PCO2 28.7 mmHg (35.0-45.0); pH 7.415 (7.340-7.450)
[2018-05-08 05:42] LABS: PO2 53.4 mmHg (75.0-100.0)
--- NOTE | 2018-05-08 09:52 | NUR ---
RECEIVED REPORT FROM CONG CREWS. ASSESSMENT CHARTED. AFEBRILE. PT HAD TTT TODAY. ABG'S DRAWN. PT WILL NOT BE EXTUBATED TODAY. POSSIBLY TOMORROW OR THE NEXT DAY. PT WILL HAVE TEMP DYALYSIS CATH PLACED TODAY AND WILL HAVE DIALYSIS TODAY WELL. PT STABLE AT THIS TIME. WILL CONTINUE TO MONITOR.
--- NOTE | 2018-05-08 10:00 | NUR ---
CONTINUE TO FOLLOW, PT REMAINS ON VENT AND TO HAVE 1ST DIALYSIS TODAY. WILL FOLLOW
[2018-05-09] VITALS (20 sets, daily range): BP systolic 86–133; BP diastolic 40–64
[2018-05-09 04:27] LABS: CALCIUM 8.6 mg/dL (8.5-10.1); CREATININE 4.3 mg/dL (0.6-1.3); POTASSIUM 3.2 mmol/L (3.5-5.1)
--- NOTE | 2018-05-09 06:25 | NUR ---
SLOW PROGRESSION TOWARDS GOALS, CONTINUES TO HAVE ASYMETRICAL MOVMENT R < L SIDE, NO CASER SHOE PARTS ABILITY NOTED LEFT HAND, HEMODIALYSIS BY CONTRACTS ADMINISTRATOR LAST NOC ORDERED, DIFFICULT TO DIALYZE PER CONTRACTS ADMINISTRATOR R/T PT FREQUENT COUGHING AND MOVMENT OF HEAD, PT TURNING HEAD VIGOROUSLY LEFT TO RIGHT WITH ORAL CARE AND INLINE SUCTIONING, PROPOFOL GTT STARTED FOR SEDATION, EFFECTIVE FOR RELAXATION RASS -1, RESTING QUIELTY WITH EYES CLOSED OFF AND ON DURING NOC, EASILY AROUSABLE TO VERBAL/TACTILE STIMULI, ABLE TO GIVE ADEQUATE ORAL CARE AND SUCTIONING VIA INLINE ETT. REMAINS USE CLAUDIO HUGGER FOR TEMPATURE MANAGEMENT, CORE TEMP 96.[address] MENDEZ HERE TO SEE PT, UPDATED ON STATUS INCLLUDING POTASSIUM 3.2, RENAL TO MANAGE POTASSIUM LEVELS.
--- NOTE | 2018-05-09 07:05 | NUR ---
CLAUDIO BRASWELL STOPPED, CORE TEMP 97.5.
--- NOTE | 2018-05-09 12:46 | NUR ---
PATIENT TOLERATING DIALYSIS. REMAINS ON VENT. ALERT AND ORIENTED TO SELF. TOLERATED CPAP.
--- NOTE | 2018-05-09 18:53 | NUR ---
TITRATING PROPOFOL TO KEEP BP WNL. PT RESPONSIVE AND FOLLOWS COMMANDS. COPIOUS CLEAR SECRETIONS FROM ET TUBE. PROGRESSING.
--- NOTE | 2018-05-10 06:56 | NUR ---
NO FURTHER CHANGES IN ASSESSMENT. SEE COMPUTERIZED ASSESSMENT CHARTING FOR FURTHER DEAILS, ALERT WITH EYES OPEN, FOLLOWING SIMPLE COMMANDS, SUCH HOLDING UP FINGER FOR BLOOD SUGAR CHECK. NODS HEAD YES/NO TO SIMPLE QUESTIONS APPROPRIATELY. PROPOFOL GTT 20MCG/KG/MIN VIA INFUSION PUMP EFFECTIVE FOR RELAXATION, AWAKENS EASILY TO VERBAL OR TACILE STIMULI. TOLERATING NEPRO TUBE FEEDING 40CC/HR VIA OG, H20 FREE WATER FLUSHES [id number] ORDERED. GASTRIC RESIDUAL =<15CC, FECAL MANAGEMENT SYSTEM BAG FULL AND CHANGED THIS AM. NO CHANGE IN VENTILATOR SETTINGS DURING SHIFT. COPIOUS AMOUNT THIN CLEAR SECRETIONS SUCTIONED ETT INLINE AND ORAL CAVITY. B/P STABLE, MAP =>60, SAO2 =<98% ON FIO2 35%. NSR TRACING HUMIDIFIER OPERATOR. EMOTIONAL SUPPORT PROVIDED. REPOSITIONED Q2 AND PRN TO PROMOTE COMFORT AND PROTECT SKIN INTEGRITY.
[2018-05-10 08:48] VITALS: BP 105/40
[2018-05-10 10:06] LABS: BE 2.1 mmol/L (-2 to +3); HCO3 26.3 mmol/L (22.0-26.0); PCO2 38.6 mmHg (35.0-45.0); PO2 99.6 mmHg (75.0-100.0); pH 7.451 (7.340-7.450)
[2018-05-10 10:24] LABS: MCHC 33.7 g/dL (28.0-37.0); MCV 83.2 fL (80.0-100.0); MPV 7.7 fl. (7.2-11.1); RBC 2.41 mil/uL (4.50-6.00); RDW-CV 16.2 % (10.5-14.5); WBC 8.1 thou/uL (4.0-11.0)
[2018-05-10 10:32] LABS: HEMOGLOBIN 6.7 gm/dL (14.0-18.0)
[2018-05-10 10:46] LABS: ALBUMIN 1.1 g/dL (3.4-5.0); CALCIUM 6.7 mg/dL (8.5-10.1); MAGNESIUM 1.7 mg/dL (1.8-2.4)
[2018-05-10 10:55] LABS: POTASSIUM 2.8 mmol/L (3.5-5.1)
--- NOTE | 2018-05-10 11:02 | NUR ---
PATIENT EXTUBATED ALERT COUGHS TO CLEAR. DENIES PAIN NOW ON 3 LITERS NASAL CANNULA.
[2018-05-10 13:14] VITALS: BP 130/58; BP 133/68
--- NOTE | 2018-05-10 18:45 | NUR ---
PATIENT REACHING FOR LINES AFTER EXTUBATION RESTRAINED RIGHT HAND. PATIENT WANTS TO BE TRANSFERED TO [facility]. REFUSING MEDS AND UNABLE TO ORIENT PATIENT. DR MENDEZ AND CIGAR SORTER NOTIFIED
[2018-05-11 06:14] LABS: HEMATOCRIT 29.2 % (42.0-52.0); MCH 28.3 pg (26.0-34.0); MCHC 33.4 g/dL (28.0-37.0); MPV 7.6 fl. (7.2-11.1); NUCLEATED RBCS 0 /100WBC; PLATELET COUNT* 119 thou/uL (150-400); RBC 3.44 mil/uL (4.50-6.00); RDW-CV 16.5 % (10.5-14.5); WBC 13.3 thou/uL (4.0-11.0)
[2018-05-11 06:15] LABS: HEMOGLOBIN 9.7 gm/dL (14.0-18.0)
[2018-05-11 06:26] LABS: ALBUMIN 1.6 g/dL (3.4-5.0); CALCIUM 8.2 mg/dL (8.5-10.1); CREATININE 4.3 mg/dL (0.6-1.3); MAGNESIUM 2.1 mg/dL (1.8-2.4); POTASSIUM 4.4 mmol/L (3.5-5.1); TOTAL BILIRUBIN 0.9 mg/dL (<0.1-1.0); TOTAL PROTEIN 4.5 g/dL (6.4-8.2)
[2018-05-11 06:41] LABS: ABSOLUTE LYMPHOCYTES 1.3 thou/uL (0.8-5.3); ATYPICAL LYMPHS 2 %; METAMYELOCYTES 2 %; PLATELET ESTIMATE ADEQUATE
--- NOTE | 2018-05-11 07:56 | NUR ---
PROGRESSING TOWARDS GOALS, AWAKE ALL NOC, ALERT TO SELF, DIFFICULT TO ORIENT TO PLACE, TIME, AND SITUATION, EMOTIONAL SUPPORT PROVIDED, WANTS TO TRANSFER TO [facility], DENIES PAIN, TOLERATING OXYGEN 3L PER NC, INTERMITTENT CONGESTED COUGH, REFUSING ORAL CARE, REQUESTING ALL MEDICAL DEVICES BE REMOVED SUCH CENTRAL LINE, DIALYSIS CATHETER AND SOLOMON CATHETER. VERBAL EDUCATION PROVIDED FOR ALL MEDICAL CARES. PT FEELS "STAFF IS ARGUMENATIVE AND LYING" INCONTINENT X1 WATERY/LOOSE BROWN STOOL. LOLIS CARE WITH BARRIER CREAM PROVIDED. NSR TO ST TRACING CARIDAC MONITOR. BED ALERM ON FOR SAFETY.
[2018-05-11 08:14] VITALS: BP 174/88
[2018-05-11 08:44] VITALS: BP 133/63
[2018-05-11 10:43] VITALS: BP 140/67
[2018-05-11 12:58] VITALS: BP 146/67
--- NOTE | 2018-05-12 05:43 | NUR ---
PT AAOX2. RESP REG AND UNALBORED SKIN W/D NO ACUTE DISTRESS NOTED. O2 2L BNC INTACT. SOLOMON ITNACT AND PATENT DRAINING YELLOW URINE. TECHNICAL STAFF ASSISTANT INTACT. PT KEEPS STATING HE WANTS TO BE RELEASED AND ASKING TO SEE DOCTOR. PT INFORMED DR WOULD SEE HIM IN AMN 0500 SOLOMON DCD AND PATIENT TOLERATED WELL. PT HAS HAD 3 LOOSE DK GREEN STOOLS THIS SHIFT. PT IS AWARE AFTER HE GOES BUT IS NOT ABLE TO TELL BEFORE HAND. VSS AND NO ACUTE CHANGES DURIGN SHIFT WILL CONTINUE TO MONITOR
[2018-05-12 09:05] LABS: HEMATOCRIT 26.9 % (42.0-52.0); HEMOGLOBIN 8.9 gm/dL (14.0-18.0); MCH 28.5 pg (26.0-34.0); MCHC 33.2 g/dL (28.0-37.0); MCV 85.7 fL (80.0-100.0); MPV 7.1 fl. (7.2-11.1); RBC 3.13 mil/uL (4.50-6.00); RDW-CV 15.7 % (10.5-14.5); WBC 12.7 thou/uL (4.0-11.0)
[2018-05-12 09:16] LABS: CALCIUM 8.5 mg/dL (8.5-10.1); CREATININE 3.7 mg/dL (0.6-1.3); POTASSIUM 4.4 mmol/L (3.5-5.1)
[2018-05-12 09:21] LABS: ALBUMIN 1.5 g/dL (3.4-5.0); TOTAL BILIRUBIN 0.8 mg/dL (<0.1-1.0); TOTAL PROTEIN 4.8 g/dL (6.4-8.2)
[2018-05-12 09:29] LABS: BE -5.1 mmol/L (-2 to +3); HCO3 18.7 mmol/L (22.0-26.0); PCO2 29.8 mmHg (35.0-45.0); pH 7.415 (7.340-7.450)
[2018-05-12 10:10] LABS: HEPATITIS B SURFACE AG Negative (Negative)
--- NOTE | 2018-05-12 11:30 | NUR ---
PT REMAINS CONFUSED, UNABLE TO CARRY ON A CONVERSATION. NO FAMILY HERE AT THIS TIME. CASE MGT WILL CONTINUE TO FOLLOW.
--- NOTE | 2018-05-12 14:49 | EEG ---
[address] [address] EEG STUDY REPORT Name: TIANNA GALEANA Room: [address] IN M.R.#: [id number] Admission: 05/01/18 Attend Phys: Marly Manning MD Discharge: Date of : 55 Report #: [id number] THIS REPORT FOR: //name// CC: [facility] physician/PCP Marly Manning DATE OF SERVICE: 05/09/2018 This patient is being followed up for asymmetrical slowing on the right side. The patient's EEG is still asymmetrical. It is suppressed on the right side as compared to the left side. Background activity on the left side appeared to be about 6 Hz and 30 microvolt. Photic stimulation is unremarkable. The patient became drowsy that was associated with bilateral slowing. IMPRESSION: This is an abnormal EEG because it is slow on the left side. That is a nonspecific finding and because of that, a right-sided lesion should be excluded. The patient also has generalized slowing, which would be consistent with encephalopathy. <ELECTRONICALLY SIGNED> By: Tyler La MD 05/12/18 1449 [id number] La MD /nt
--- NOTE | 2018-05-12 14:49 | EEG ---
[address] [address] EEG STUDY REPORT Name: TIANNA GALEANA Room: [address] IN M.R.#: [id number] Admission: 05/01/18 Attend Phys: Marly Manning MD Discharge: Date of : 55 Report #: [id number] THIS REPORT FOR: //name// CC: [facility] physician/PCP Marly Manning DATE OF SERVICE: 05/04/2018 This patient is post-cardiac arrest. EEG was done by placing the electrode by standard 10-20 system of electrode placement. Both referential and sequential montages were used. EEG is disorganized and poorly formed. Background activity in this patient's EEG is about 5-6 Hz. It is a symmetrical activity. It is suppressed on the right side as compared to the left side. Photic stimulation was unremarkable. Throughout the record, no active epileptiform activity was noticed. IMPRESSION: This is an abnormal EEG. It is slow in generalized fashion. That will be consistent with encephalopathy. However, the patient's EEG is slow on the right side. Because of that, a right-sided lesion should be excluded by repeat CT scan or MRI. Thank you very much for this referral. <ELECTRONICALLY SIGNED> By: Tyler La MD 05/12/18 1449 [id number] La MD /josh
--- NOTE | 2018-05-12 16:39 | NUR ---
PT ARRIVED ON THE UNIT AT 1625. READ AND AGREE WITH ICU NURSE ASSESSMENT. REPORT TAKEN FROM CONG OCHOA. PT IS A&O WITH NO C/O PAIN. HE HAS REQUESTED TO GO TO [facility]. PT IS ON 3L OF O2. PT IS ANGRY/ARGUMENATIVE BUT SEEMS TO HAVE SETTLED DOWN I EXAMINED HIM. LUNGS ARE WHEEZY. CALLED AND PAGED JOSHUA WITH SPEECH. SHE IS IN EVALUATING PT NOW. BED IS IN LOW POSITION CALL LIGHT IS IN REACH.
[2018-05-12 20:33] VITALS: BP 149/80
[2018-05-13] VITALS: BP 114/70
--- NOTE | 2018-05-13 01:48 | NUR ---
ASSUMED CARE OF PATIENT AT 1900. VSS, SLIGHT TEMP. REDUCED ON MIDNIGHT ASSESSMENT. INCONTINENT OF BOWEL AND BLADDER, ABLE TO TELL THIS RN WHEN HE NEEDS TO BE CLEANED UP. IS NOW DRINKING NECTAR THICK LIQUIDS, BLOOD SUGAR ELEVATED, TREATED PER JUL. TURNED Q2. ORIENTED TO PERSON AND PLACE. ANXIOUS AT TIMES. PROGRESSING SLOWLY TOWARDS POC GOALS.
[2018-05-13 04:00] VITALS: BP 145/72
[2018-05-13 05:18] LABS: ABSOLUTE EOSINOPHILS 0.1 thou/uL (0.0-0.7); ABSOLUTE LYMPHOCYTES 0.4 thou/uL (0.8-5.3); ABSOLUTE MONOCYTES 0.5 thou/uL (0.0-1.2); ABSOLUTE NEUTROPHILS 10.3 thou/uL (1.6-8.1); BASOPHILS 0.2 %; EOSINOPHILS 0.9 %; HEMATOCRIT 26.3 % (42.0-52.0); LYMPHOCYTES 3.9 %; MCH 28.7 pg (26.0-34.0); MCHC 34.2 g/dL (28.0-37.0); MONOCYTES 4.2 %; MPV 7.2 fl. (7.2-11.1); NUCLEATED RBCS 0 /100WBC; PLATELET COUNT* 118 thou/uL (150-400); POLYS 90.8 %; RBC 3.14 mil/uL (4.50-6.00); RDW-CV 15.6 % (10.5-14.5); WBC 11.4 thou/uL (4.0-11.0)
[2018-05-13 05:30] LABS: CALCIUM 8.5 mg/dL (8.5-10.1); CREATININE 4.5 mg/dL (0.6-1.3); POTASSIUM 3.9 mmol/L (3.5-5.1)
[2018-05-13 08:00] VITALS: BP 143/63
--- NOTE | 2018-05-13 10:29 | NUR ---
4931 ASSUMED CARE OF PATIENT. SEE DOCUMENTED ASSESSMENT. PT INCONTINENT OF STOOL.
--- NOTE | 2018-05-13 10:30 | NUR ---
1000 DISCUSSED PT CARE AND RESTRAINT WITH DR MENDEZ.ORDERS NOTED. PT TO GO FOR VIDEO SWALLOW NOW. WILL HAVE DIALYSIS TODAY
--- NOTE | 2018-05-13 10:30 | NUR ---
0900 PT WANTS TO FEED SELF. PT IS ORIENTED X 3. DISCUSSED RESTRAINT WITH PATIENT. HE STATES HE WILL NOT PULL AT HIS DIALYSIS CATHETER OR IV. RESTRAINTS OFF AT THIS TIME.
--- NOTE | 2018-05-13 10:56 | NUR ---
CONTINUE TO FOLLOW. PT OFF UNIT AND NO FAMILY HERE. DISCUSSED WITH CONG WANG AND DR MENDEZ. WILL TRY TO MEET WITH PT LATER. IS HAVING DIALYSIS THIS AFTERNOON. PT DOENS'T HAVE DPOA, PLAN TO DISCUSS IF APPROPRIATE. UNSURE OF DC NEEDS AT THIS TIME. PT WILL NOT QUALIFY FOR SNF HE DOESN'T HAVE MEDICARE, ONLY MEDICAID.
[2018-05-13 12:04] VITALS: BP 180/86
--- NOTE | 2018-05-13 12:30 | NUR ---
NEW DIET ORDER NOTED. PATIENT WILL DIALYZE IN ROOM AFTER LUNCH.
--- NOTE | 2018-05-13 15:48 | NUR ---
TWO MESSAGES SENT REGARDING ELEVATED TEMPERATURE. ANTIBIOTIC HELD TIL OFF DIALYSIS
[2018-05-13 16:33] VITALS: BP 179/109
--- NOTE | 2018-05-13 17:13 | NUR ---
PATIENT WITH SOME PROGRESSION TOWARDS GOALS. OFF OF RESTRAINTS. DIET ADVANCED TO MECHANICAL SOFT WITH THIN LIQUIDS. STILL ON DIALYSIS. FEBRILE THIS AFTERNOON. BLOOD CULTURES OBTAINED. BROTHER VISITED
--- NOTE | 2018-05-13 17:50 | NUR ---
DIALYSIS COMPLETED. NO FLUID REMOVAL TODAY. ANTIBIOTIC THERAPY RESUMED.
[2018-05-13 20:08] VITALS: BP 126/65
[2018-05-14] VITALS: BP 143/54
[2018-05-14 04:36] VITALS: BP 148/76
--- NOTE | 2018-05-14 06:45 | NUR ---
PATIENT NOT PROGRESSING TOWARDS GOALS: PATIENT IRRITABLE AND UPSET THROUGHOUT SHIFT BECAUSE HE IS "NOT GETTING ANY BETTER LAYING IN THIS BED AND IS JUST GETTING WEAKER." PATIENT ENCOURAGED THAT PHYSICAL THERAPY IS CONSULTED AND WILL WORK WITH HIM. PATIENT REPOSITIONED THROUGHOUT SHIFT AND ACTIVE RANGE OF MOTION ENCOURAGED. PATIENT DENIES PAIN THROUGHOUT SHIFT. COARSE LUNG SOUNDS PRESENT WITH COARSE, CONGESTED COUGH. SPUTUM COLLECTED BUT THERE WAS TOO MUCH SALIVA PRESENT. HOURLY ROUNDING OBSERVED. CALL LIGHT WITHIN REACH.
[2018-05-14 07:30] VITALS: BP 178/79
[2018-05-14 11:26] LABS: HEMATOCRIT 24.7 % (42.0-52.0); HEMOGLOBIN 8.1 gm/dL (14.0-18.0); MCH 27.9 pg (26.0-34.0); MCHC 32.7 g/dL (28.0-37.0); MCV 85.4 fL (80.0-100.0); MPV 7.3 fl. (7.2-11.1); RBC 2.9 mil/uL (4.50-6.00)
[2018-05-14 11:34] LABS: INR 1.1; PROTIME 11.4 Seconds (9.20-11.50)
[2018-05-14 11:38] VITALS: BP 151/62
[2018-05-14 11:45] LABS: CALCIUM 7.8 mg/dL (8.5-10.1); CREATININE 3.6 mg/dL (0.6-1.3); POTASSIUM 4.1 mmol/L (3.5-5.1)
--- NOTE | 2018-05-14 12:37 | NUR ---
CONTINUE TO FOLLOW, MET WITH PT. DISCUSSED HOME SITUATION, PT NOT GIVING MUCH INFO, PARANOID AND SUSPICIOUS OF QUESTIONS ASKED. DID MAKE PT AWARE THAT CM HAD SPOKEN WITH HIS BROTHER, HE WANTED TO KNOW WHAT HIS BROTHER SAID. ASSSURED HIM THAT DISCUSSION WAS WHEN PT WAS IN ICU AND JUST AN UPDATE. BROTHER DID OFFER INFO. TALKED WITH PT ABOUT POSSIBLE DC NEEDS INCLUDING REHAB. PT WANTING TO TALK WITH DR ABOUT WHEN HE CAN LEAVE. HAS LIMITED INSIGHT RE: NEEDS AND SELF CARE. ATTEMPTED TO DISCUSS DPOA WITH PT, HE STATED HE WILL 'CONSIDER'. NOT SURE WHO HE WOULD WANT, ASKED ABOUT HIS BROTHER AND PT NOT SURE, STATED HE HAS AN 'AUNT' ALSO. CALL PLACED TO BROTHER/NEENA, HAD TO LEAVE MESSAGE. WILL FOLLOW
[2018-05-14 15:50] VITALS: BP 132/62
[2018-05-14 20:00] VITALS: BP 116/44
--- NOTE | 2018-05-14 22:09 | NUR ---
PATIENT REFUSING CT HEAD AND STATES "HOW LONG IS THIS GOING TO GO ON?" UPON CLARIFICATION, PATIENT STATES "I JUST WANT TO GO HOME, I DONT WANT ALL THIS MEDICATION AND TREATMENT." NEUROLOGY NOTIFIED OF PATIENT REFUSING CT. CT HEAD CANCELLED AT THIS TIME.
[2018-05-15] VITALS: BP 110/56
[2018-05-15 00:03] VITALS: BP 139/59
[2018-05-15 03:37] LABS: ALBUMIN 1.4 g/dL (3.4-5.0); CALCIUM 7.5 mg/dL (8.5-10.1); CREATININE 4.1 mg/dL (0.6-1.3); POTASSIUM 3.9 mmol/L (3.5-5.1); TOTAL BILIRUBIN 0.6 mg/dL (<0.1-1.0); TOTAL PROTEIN 4.1 g/dL (6.4-8.2)
[2018-05-15 04:52] VITALS: BP 141/71
--- NOTE | 2018-05-15 06:35 | NUR ---
PATIENT IRRITABLE THROUGHOUT SHIFT, ALTHOUGH HE DENIES PAIN AND DISCOMFORT. HE IS RESTLESS DESPITE REPOSITIONING AND PROMOTING REST AND COMFORT. QUIET ENVIRONMENT PROVIDED. PATIENT FRUSTRATED THAT HE IS STILL HERE AND STATES MULTIPLE TIMES "WILL I GET TO TALK TO THE DOCTOR?" REASSURED PATIENT THAT DOCTOR WITH BE IN TO SEE HIM LATER TODAY. HOURLY ROUNDING OBSERVED. CALL LIGHT WITHIN REACH
[2018-05-15 07:30] VITALS: BP 153/66
--- NOTE | 2018-05-15 11:47 | NUR ---
CONTINUE TO FOLLOW, MET WITH PT'S BROTHER/NEENA. HE PLANS TO DISCUSS DPOA STATUS WITH PT AND TRY TO ENCOURAGE HIM TO NOT REFUSE TESTS. WILL FOLLOW
--- NOTE | 2018-05-15 12:23 | CON ---
[address] [address] CONSULTATION Name: TIANNA GALEANA Room: [address] IN M.R.#: [id number] Admission: 05/01/18 Attend Phys: Marly Manning MD Discharge: Date of : 55 Report #: [id number] THIS REPORT FOR: //name// CC: [facility] physician/PCP Marly Manning HISTORY OF PRESENT ILLNESS: This is a 62-year-old gentleman who has been consulted for evaluation of dilated bile duct. The patient was admitted about 10 days back with cardiac arrest. The patient was found hypothermic at home and had an out of hospital cardiac resuscitation and intubation. The patient was brought in with respiratory failure, metabolic acidosis, and diabetic ketoacidosis. Over the course of hospitalization, the patient appears to have somewhat recovered and has become more alert. The patient is oriented to time, place, and person and reports diminished movement and weakness on the left side. The patient denies any abdominal pain, nausea or vomiting or prior history of liver disease. The history is limited due to the patient's mental status and most of the history has been obtained from the patient's previous records. PAST MEDICAL HISTORY: The patient has history of hypertension, hyperlipidemia, diabetes. PAST SURGICAL HISTORY: No surgical history noted. SOCIAL HISTORY: There is no known history of smoking, alcohol or recreational drug use. FAMILY HISTORY: Unable to obtain. REVIEW OF SYSTEMS: Unable to obtain due to patient's mental status. PHYSICAL EXAMINATION: GENERAL: The patient is arousable and oriented. LUNGS: Clear to auscultation bilaterally. CARDIOVASCULAR: Rate and rhythm regular. S1, S2 present. NECK: Supple. There is no supraclavicular lymphadenopathy. ABDOMEN: Soft. There is no distention, guarding or rigidity. EXTREMITIES: Warm and well perfused. NEUROLOGIC: Grossly, there is some weakness of the left side. LABORATORY DATA: Hemoglobin 9.7, hematocrit 29.2, platelet count 119, WBC count 13.3. Sodium 144, potassium 4.1, chloride 105, bicarbonate 25, BUN 55, creatinine 4.3, total bilirubin 0.1, AST 54, ALT 70, alkaline phosphatase 522. INR 1.3. Abdominal ultrasound performed on 05/06 demonstrates dilation of the intrahepatic and extrahepatic biliary tree measuring up to 12 mm. CBD measured 8.6 mm size on the 2009 ultrasound. Pancreas, spleen, and are moderately obscured [place] [id number] CONSULTATION Name: TIANNA GALEANA Room: [address] IN [facility]#: [id number] Admission: 05/01/18 Attend Phys: Marly Manning MD Discharge: Date of : 55 Report #: [id number] ASSESSMENT AND PLAN: Pleasant 62-year-old male with past medical history significant for hypertension, hyperlipidemia and diabetes, who was brought in for out of hospital cardiac arrest, was resuscitated. The patient has been admitted for the last 10 days and in the course of hospitalization appears to have recovered significantly. The patient continues to have some left-sided weakness. The gastrointestinal service has been consulted for evaluation of dilated bile ducts. The patient denies any symptoms of abdominal pain in the last few months, nausea, vomiting or weight loss. I would recommend magnetic resonance cholangiopancreatography to evaluate the biliary tree better and will continue to monitor his liver enzymes. I would also recommend an outpatient endoscopic ultrasound with or without endoscopic retrograde cholangiopancreatography depending on the magnetic resonance cholangiopancreatography findings. The patient was seen and examined in the intensive care unit. A total of 35 minutes were spent for the patient, reviewing his chart, performing physical examination and formulating a plan of care. Please call the gastrointestinal service if any questions. <ELECTRONICALLY SIGNED> By: Carl Knox MD 05/15/18 1223 [id number] Knox MD /nt
[2018-05-15 16:00] VITALS: BP 118/57
[2018-05-15 20:12] VITALS: BP 127/63
[2018-05-16] VITALS: BP 130/61
[2018-05-16 04:00] VITALS: BP 131/66
[2018-05-16 05:25] LABS: HEMATOCRIT 20.6 % (42.0-52.0); MCH 28.8 pg (26.0-34.0); MCV 84.6 fL (80.0-100.0); MPV 7.5 fl. (7.2-11.1); RBC 2.43 mil/uL (4.50-6.00); RDW-CV 15.6 % (10.5-14.5); WBC 6.5 thou/uL (4.0-11.0)
[2018-05-16 05:32] LABS: CALCIUM 7.5 mg/dL (8.5-10.1); CREATININE 3.2 mg/dL (0.6-1.3); POTASSIUM 4.2 mmol/L (3.5-5.1)
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
--- NOTE | 2018-05-16 07:45 | NUR ---
ASSUMED CARE OF PT ASSESSED AND DOCUMENTED. PT IS ON CARDIAC MONITER TRACING ST HR 119.VSS WNL. PT HAS A SLIGHT TEMP OF 99.9. HE IS A&O AND HAS NO C/O PAIN. PT HAS A LOOSE COUGH WITH NOTED WHEEZING. PT CONT ON 2L OF 02. PT LIKES TO BE CALLED [facility]. BED IS IN LOW POSITION CALL LIGHT IS IN REACH. WM.
[2018-05-16 08:00] VITALS: BP 131/63
[2018-05-16 12:00] VITALS: BP 136/57
[2018-05-16 16:00] VITALS: BP 106/79
--- NOTE | 2018-05-16 16:10 | NUR ---
PT HAS BEEN UP IN BEDSIDE CHAIR THIS SHIFT. ASKED RT FOR A FLUTTER AND REMIND PT HOURLY TO USE. HE HAS BEEN COMPLIANT. PT HAD 3U OF INSULLIN AT BREAKFAST AND DINNER. EDUCATION GIVEN ON DEMAND. HOURLY ROUNDING COMPLETE. HE HAS BEEN COOPERATIVE AND RESPECTFUL.
--- NOTE | 2018-05-16 16:38 | NUR ---
PTS L HAND CONT TO BE SWOLLEN. PT STATES NO PAIN. HE WAS WEAK WHEN ASSISTING TO THE BEDSIDE COMMODE WITH WALKER,GAIT BELT, TECH AND THIS NURSE.
[2018-05-17] VITALS: BP 142/71
[2018-05-17 04:00] VITALS: BP 159/73
--- NOTE | 2018-05-17 06:06 | NUR ---
PATIENT REMAINS IRRITABLE AT TIMES AND CONTINUES TO STATE HE WANTS TO GO HOME AND THAT HE WOULD "GET BETTER FASTER AT HOME BECAUSE HE WOULD NOT BE LAYING IN BED ALL THE TIME AT HOME." REASSURANCE PROVIDED AND EDUCATION GIVEN ON PLAN OF CARE. PATIENT ALSO C/O LOWER BACK PAIN. PATIENT ASSISTED TO RECLINER THIS MORNING AND HE STATES HIS BACK FEELS BETTER SITTING UP. PATIENT DENIES DESIRE FOR PAIN MEDICATION. SOLOMON REMAINS IN PLACE. U/A COLLECTED AND SENT TO LAB. CALL LIGHT WITHIN REACH
[2018-05-17 06:15] LABS: HEMATOCRIT 21.6 % (42.0-52.0); HEMOGLOBIN 7.2 gm/dL (14.0-18.0); MCH 28.2 pg (26.0-34.0); MCHC 33.4 g/dL (28.0-37.0); MCV 84.5 fL (80.0-100.0); MPV 7.4 fl. (7.2-11.1); RBC 2.56 mil/uL (4.50-6.00); RDW-CV 15.1 % (10.5-14.5); WBC 6.6 thou/uL (4.0-11.0)
[2018-05-17 06:31] LABS: URINE BILIRUBIN NEGATIVE (Negative); URINE BLOOD 3+ (Negative); URINE CLARITY CLEAR; URINE COLOR YELLOW; URINE GLUCOSE-RANDOM TRACE (Negative); URINE KETONES NEGATIVE (Negative); URINE NITRITE-REFLEX NEGATIVE (Negative); URINE PROTEIN 2+ (Negative); URINE SPECIFIC GRAVITY 1.015 (1.005-1.030); URINE UROBILINOGEN 0.2 E.U./dl (0.2-1.0)
[2018-05-17 06:32] LABS: URINE LEUKOCYTES-REFLEX 3+ (Negative)
[2018-05-17 06:36] LABS: ALBUMIN 1.4 g/dL (3.4-5.0); CALCIUM 7.5 mg/dL (8.5-10.1); CREATININE 4.3 mg/dL (0.6-1.3); MAGNESIUM 1.7 mg/dL (1.8-2.4); POTASSIUM 3.9 mmol/L (3.5-5.1); TOTAL BILIRUBIN 0.5 mg/dL (<0.1-1.0); TOTAL PROTEIN 4.3 g/dL (6.4-8.2)
[2018-05-17 06:38] LABS: BACTERIA-REFLEX >30 Many /HPF (None Seen); CASTS None Seen /LPF (None Seen); CRYSTALS None Seen /LPF (None Seen); SQUAMOUS 0-3 Few /LPF (0-3); URINE RBC 3-10 Few /HPF (0-2); URINE WBC-REFLEX >25 Many /HPF (0-5)
[2018-05-17 06:39] LABS: YEAST-REFLEX Present (None Seen)
--- NOTE | 2018-05-17 07:45 | NUR ---
ASSUMED CARE OF PT ASSESSED AND DOCUMENTED. PT IS ST ON CARDIAC MONITER WITH HR OF 109. HE IS A&O WITH NO C/O PAIN. VSS WNL. PT HAS A SLIGHT TEMP OF 99.6. HE CONT ON 2L OF 02.PT HAS A R CHEST TEMP DYALYSIS PORT AND A TRIPLE LUMEN IN THE JUGLAR. HE IS NOT HAPPY WITH BEING HERE AND WANTS TO GO HOME. PT HAS A SOLOMON WITH LIGHT YELLOW URINE. PT HAS L SIDED WEAKNESS AND L ARM IS EDEMATOUS. PT CONT TO USE HIS FLUTTER VALVE. BED IS IN LOW POSITION CALL LIGHT IS IN REACH. WM.
[2018-05-17 08:00] VITALS: BP 151/64
[2018-05-17 11:59] VITALS: BP 113/57
[2018-05-17 15:44] VITALS: BP 132/63
--- NOTE | 2018-05-17 16:13 | NUR ---
PT HAS BEEN UP IN BEDSIDE CHAIR MOST OF THIS SHIFT. HE CONT TO TELL ALL WHO ENTER HE IS GOING HOME FOR XMAS. PT STATES HIS ONLY LIVING SIBLING IS HIS BROTHER AND THEY DO NOT GET ALONG. HE STATES BROTHER IS JEALOUS OF HIM. PT GIVEN MG+ PER PROTOCOL RESULTS PENDING. HE CONT TO USE HIS FLUTTER. EDUCATION GIVEN ROUNDING DONE.
[2018-05-17 19:10] VITALS: BP 133/68
--- NOTE | 2018-05-17 22:47 | NUR ---
PT ASSESSMENT COMPLETED. PT DENIES PAIN. ST ON MONITOR. SOLOMON IN PLACE DRAINING APPROPROATELY. VSS. PT TEMP WAS INITIALLY 100.1, ROOM WAS VERY WARM AND PT COVERED UP. PT UNCONVERED THERMOSTAT TURNED DOEN, TEMP RETAKEN AND FOUND TO BE 98.3. NO FURTHER NEEDS NOTED AT THIS TIME. CLWR.
[2018-05-18 00:07] VITALS: BP 131/65
[2018-05-18 02:25] LABS: HEMATOCRIT 20.6 % (42.0-52.0); MCH 28.3 pg (26.0-34.0); MCHC 33.8 g/dL (28.0-37.0); MCV 83.7 fL (80.0-100.0); MPV 7.2 fl. (7.2-11.1); RBC 2.47 mil/uL (4.50-6.00); RDW-CV 15.4 % (10.5-14.5); WBC 8.3 thou/uL (4.0-11.0)
[2018-05-18 02:50] LABS: ALBUMIN 1.3 g/dL (3.4-5.0); CALCIUM 7.4 mg/dL (8.5-10.1); MAGNESIUM 1.7 mg/dL (1.8-2.4); TOTAL BILIRUBIN 0.5 mg/dL (<0.1-1.0); TOTAL PROTEIN 4.6 g/dL (6.4-8.2)
[2018-05-18 04:39] VITALS: BP 144/71
--- NOTE | 2018-05-18 05:44 | NUR ---
PT HAS NOT SLEPT THIS SHIFT. PT CAN BECOME AGITATED AND CONFUSED, BUT CAN BE REDIRECTED. NO NEW CONCERNS AT THIS TIME.
[2018-05-18 08:30] VITALS: BP 115/88
--- NOTE | 2018-05-18 13:39 | NUR ---
RECEIVED CONSULT FOR POSSIBLE REHAB ADMISSION. CONSULT HAS BEEN ACKNOWLEDGED BY CHICKEN CLEANER AND DR. CABRERA. PATIENT IS S/P CARDIAC ARREST WITH POST ANOXIA AND POSSIBLE CVA. NEUROLOGY IS FOLLOWING. PATIENT TO HAVE MRI TODAY. MAX A WITH THERAPIES. WILL FOLLOW TO SEE HOW PATIENT PROGRESSES. THANK YOU FOR THIS CONSULT.
[2018-05-18 15:33] VITALS: BP 136/65
--- NOTE | 2018-05-18 16:45 | NUR ---
PT REMAINED ALERT AND ORIENTED THIS SHIFT. PT HAD MCRP COMPLETED TODAY. PT LEFT FOR DIALYSIS TODAY. PT HAS BEEN NPO AND INSULIN WAS HELD. PT RETURNED FROM DIALYSIS AND HAS BEEN SLEEPY SINCE. FALL RISK PRECAUTIONS IN PLACE. HOURLY ROUNDING COMPLETED. WILL CONTINUE TO MONITOR.
[2018-05-18 20:00] VITALS: BP 134/68
[2018-05-19] VITALS: BP 145/72
--- NOTE | 2018-05-19 03:35 | NUR ---
ASSUMED PT CARE @ 1930. PT IS A+O X4. FREQUENTLY ASKS FOR REPOSITIONING. PT ABLE TO ASSIST WITH TURNS. DIARRHEA X 2. SMALL/MODERATE AMOUNT- LOOSE AND BROWN. OFFERED FLUIDS EVERYTIME IN ROOM. PT IS ABLE TO DRINK WELL FROM STRAW, PT IS PALE. NO SOA NOTED OR OBSERVED. O2 INTACT. GENERALIZED SWELLING. SCROTUM RED AND SWOLLEN. ELEVATED ON TOWEL. PT DENIES PAIN OR DISCOMFORT (OTHER THAN PREFERS HEAD ELEVATED), ST ON THE MONITOR. CALL LIGHT IN REACH. HOURLY ROUNDING FOR SAFETY.
[2018-05-19 04:00] VITALS: BP 151/70
[2018-05-19 07:30] VITALS: BP 131/66
[2018-05-19 11:53] VITALS: BP 137/65
[2018-05-19 20:00] VITALS: BP 133/68
[2018-05-20 00:11] VITALS: BP 138/62
[2018-05-20 04:39] VITALS: BP 122/55
--- NOTE | 2018-05-20 05:58 | NUR ---
ASSUMED PATIENT CARE AT 1900. PATIENT ALERT TIMES 3, VERY DROWSY. IV PATENT TO MEDICATIONS AND BLOOD DRAW. NO COMPLAINTS OF PAIN OR DISCOMFORT NOTED. HOURLY ROUNDING AND PASTRY BAKER COMPLETED CHARTED.TEMPORARY DIALYSIS CATH IN PLACE.
[2018-05-20 06:01] LABS: ALBUMIN 1.3 g/dL (3.4-5.0); CALCIUM 7.5 mg/dL (8.5-10.1); CREATININE 4.6 mg/dL (0.6-1.3); TOTAL BILIRUBIN 1.4 mg/dL (<0.1-1.0); TOTAL PROTEIN 4.6 g/dL (6.4-8.2)
[2018-05-20 06:08] LABS: MCH 28.3 pg (26.0-34.0); MCHC 34.2 g/dL (28.0-37.0); MCV 82.9 fL (80.0-100.0); MPV 7.4 fl. (7.2-11.1); NUCLEATED RBCS 0 /100WBC; PLATELET COUNT* 167 thou/uL (150-400); RBC 2.19 mil/uL (4.50-6.00); RDW-CV 15.6 % (10.5-14.5); WBC 4.8 thou/uL (4.0-11.0)
[2018-05-20 06:25] LABS: HEMOGLOBIN 6.2 gm/dL (14.0-18.0)
[2018-05-20 08:00] VITALS: BP 125/60
[2018-05-20 08:40] LABS: HEMATOCRIT 18.1 % (42.0-52.0)
[2018-05-20 09:13] LABS: ABSOLUTE BASOPHILS 0.1 thou/uL (0.0-0.2); ABSOLUTE EOSINOPHILS 0.1 thou/uL (0.0-0.7); ABSOLUTE LYMPHOCYTES 0.3 thou/uL (0.8-5.3); ABSOLUTE MONOCYTES 0.3 thou/uL (0.0-1.2); PLATELET ESTIMATE ADEQUATE
[2018-05-20 10:49] VITALS: BP 128/64; BP 132/69; BP 135/80; BP 140/77
--- NOTE | 2018-05-20 12:05 | NUR ---
PT DIAPHORETIC AND SLEEPY. BG READ LO ON GLUCOMETER. ORAL GLUCOSE GIVEN. DR VILLA NOTIFIED
--- NOTE | 2018-05-20 12:38 | NUR ---
PT BG CONTINUES TO READ LO ON MACHINE. PT GIVEN HALF AN AMP OF D50. LABS DRAWN. WILL CONTINUE TO MONITOR
--- NOTE | 2018-05-20 13:31 | NUR ---
CONTINUE TO FOLLOW, MET WITH PT THIS AM AND DISCUSSED WITH DR VILLA. TALKED WITH PT AGAIN ABOUT DPOA STATUS AND DC PLAN. PT KEPT ASKING ABOUT GOING HOME. REVIEWED CURRENT STATUS WITH THERAPY, DIALYSIS AND IV ANTIBX NEEDS AND HOW WEAK HE CURRENTLY IS. EXPLAINING NEED FOR CONTINUED THERAPY AND POSSIBLE REHAB. PT DOES NOT HAVE A 'SAFE' DC PLAN TO GO HOME AT THIS TIME, DOESN'T HAVE AND NOT ABLE TO STATE WHO COULD HELP HIM AT HOME. PT STATING 'PEOPLE ARE MAKING DECISIONS FOR ME.' EXPLAINED TO PT THAT CM IS TRYING TO EXPLORE OPTIONS BUT THAT IT'D BE HELPFUL TO HAVE SOMEONE HE TRUSTS TO ASSIST HIM WITH THIS ALSO. PT NOT WILLING TO FURTHER DISCUSS. HAS REHAB CONSULT. DR VILLA ASKED FOR LTAC CONSULT ALSO. CALLED AND FAXED REFERRAL TO [facility]. PT HAS [place]ICAID, WOULD NEED TO STAY IN [place]
--- NOTE | 2018-05-20 16:22 | NUR ---
PT RESTING IN BED THROUGHOUT SHIFT. DENIES PAIN. REPOSITIONED FREQUENTLY. BLOOD TRANSFUSION THIS AFTERNOON. TOLERATED WELL. NSR ON MONITOR. LOW BG TREATED PRIOR TO LUNCH DR VILLA NOTIFIED. DIALYSIS THIS PM. SOLOMON CATH DRAINING CLEAR YELLOW URINE.
[2018-05-20 20:15] VITALS: BP 134/73
[2018-05-21] VITALS: BP 150/80
--- NOTE | 2018-05-21 03:47 | NUR ---
ASSUMED CARE OF PT AT 1900. PT IS ALERT. VSS. PERRLA. NO COMPLAINTS OF PAIN. PT HAS A SOLOMON IN PLACE. PT IS IN SINUS RYTHM ON THE TELEMETRY. PT IS RESTING COMFORTABLY IN BED. RESPIRATIONS ARE EVEN AND NONLABORED. WILL CONTINUE TO MONITOR PT.
[2018-05-21 04:00] VITALS: BP 148/72
[2018-05-21 04:56] LABS: HEMATOCRIT 23.1 % (42.0-52.0); HEMOGLOBIN 7.9 gm/dL (14.0-18.0)
--- NOTE | 2018-05-21 07:30 | NUR ---
PT TO IR VIA CART. CONSENT ON CHARGE
[2018-05-21 07:45] VITALS: BP 144/75
[2018-05-21 09:51] LABS: ABSOLUTE BASOPHILS 0.2 thou/uL (0.0-0.2); ABSOLUTE EOSINOPHILS 0.1 thou/uL (0.0-0.7); ABSOLUTE LYMPHOCYTES 0.7 thou/uL (0.8-5.3); ABSOLUTE MONOCYTES 0.6 thou/uL (0.0-1.2); ABSOLUTE NEUTROPHILS 3.3 thou/uL (1.6-8.1); BASOPHILS 4.4 %; EOSINOPHILS 2.3 %; HEMATOCRIT 23.4 % (42.0-52.0); LYMPHOCYTES 14.7 %; MCH 28.5 pg (26.0-34.0); MCHC 34.1 g/dL (28.0-37.0); MCV 83.5 fL (80.0-100.0); MONOCYTES 11.4 %; MPV 7.2 fl. (7.2-11.1); NUCLEATED RBCS 0 /100WBC; PLATELET COUNT* 200 thou/uL (150-400); POLYS 67.2 %; RDW-CV 15.2 % (10.5-14.5)
[2018-05-21 10:00] VITALS: BP 148/70
[2018-05-21 10:25] LABS: ALBUMIN 1.3 g/dL (3.4-5.0); CALCIUM 7.7 mg/dL (8.5-10.1); POTASSIUM 3.9 mmol/L (3.5-5.1); TOTAL BILIRUBIN 2.5 mg/dL (<0.1-1.0); TOTAL PROTEIN 4.9 g/dL (6.4-8.2)
[2018-05-21 10:27] LABS: CREATININE 3.1 mg/dL (0.6-1.3)
[2018-05-21 10:30] VITALS: BP 145/71
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
[2018-05-21 11:56] VITALS: BP 151/69
--- NOTE | 2018-05-21 16:25 | NUR ---
DIALYSIS CATH PLACEMENT THIS AM. PT RESTING IN BED THROUGHOUT SHIFT. REPOSITIONED FREQUENTLY. PT TOLERATING PO WELL. BG REMAIN WNL. SOLOMON CATH DRAINING CLEAR YELLOW URINE. INCONTINENT OF STOOL
--- NOTE | 2018-05-21 17:47 | NUR ---
CONTINUING TO FOLLOW PATIENT ALONG WITH DR. CABRERA. PATIENT IS VERY MEDICALLY COMPLEX AND NOT MEDICALLY STABLE YET. ONLY PARTICIPATING IN THERPIES OCCASSIONALLY 2/2 MEDICAL COMPLEXITY OR UNALBE DUE TO FATIGUE. MEDICAL TESTING AND WORKUP STILL IN PROGRESS, PER PHYSICIAN NOTES PLAN IS FOR LTACH ONCE STABLE FOR TRANSFER. WILL CONTINUE TO FOLLOW WHILE PATIENT ON ACUTE.
[2018-05-21 21:44] LABS: URINE BLOOD 3+ (Negative); URINE CLARITY CLEAR; URINE COLOR YELLOW; URINE GLUCOSE-RANDOM NEGATIVE (Negative); URINE KETONES NEGATIVE (Negative); URINE NITRITE-REFLEX NEGATIVE (Negative); URINE PROTEIN 2+ (Negative); URINE SPECIFIC GRAVITY 1.025 (1.005-1.030); URINE UROBILINOGEN 0.2 E.U./dl (0.2-1.0)
[2018-05-21 21:46] LABS: URINE BILIRUBIN 1+ (Negative); URINE LEUKOCYTES-REFLEX 2+ (Negative)
[2018-05-21 21:49] LABS: ICTOTEST (BILI CONFIRMATORY) Positive (Negative)
[2018-05-21 22:04] LABS: CASTS None Seen /LPF (None Seen); CRYSTALS None Seen /LPF (None Seen); MUCUS None Seen strn/LPF (None Seen); SQUAMOUS NONE SEEN /LPF (0-3); URINE RBC 3-10 Few /HPF (0-2); WBC CLUMPS Few (None Seen); YEAST-REFLEX Present (None Seen)
[2018-05-21 22:05] LABS: BACTERIA-REFLEX 1-9 Few /HPF (None Seen)
[2018-05-22] VITALS: BP 154/79
[2018-05-22 02:06] LABS: ABSOLUTE BASOPHILS 0.2 thou/uL (0.0-0.2); ABSOLUTE EOSINOPHILS 0.1 thou/uL (0.0-0.7); ABSOLUTE LYMPHOCYTES 0.9 thou/uL (0.8-5.3); ABSOLUTE MONOCYTES 0.6 thou/uL (0.0-1.2); ABSOLUTE NEUTROPHILS 3.8 thou/uL (1.6-8.1); BASOPHILS 4.3 %; HEMATOCRIT 22.6 % (42.0-52.0); HEMOGLOBIN 7.7 gm/dL (14.0-18.0); LYMPHOCYTES 15.3 %; MCH 28.4 pg (26.0-34.0); MCHC 34.1 g/dL (28.0-37.0); MCV 83.3 fL (80.0-100.0); MONOCYTES 10.7 %; MPV 7.2 fl. (7.2-11.1); NUCLEATED RBCS 0 /100WBC; PLATELET COUNT* 224 thou/uL (150-400); POLYS 67.7 %; RBC 2.72 mil/uL (4.50-6.00); WBC 5.6 thou/uL (4.0-11.0)
[2018-05-22 02:16] LABS: APTT 30.7 Seconds (25.0-31.3); PROTIME 10.6 Seconds (9.20-11.50)
[2018-05-22 02:19] LABS: ALBUMIN 1.4 g/dL (3.4-5.0); CALCIUM 7.9 mg/dL (8.5-10.1); CREATININE 3.8 mg/dL (0.6-1.3); POTASSIUM 3.9 mmol/L (3.5-5.1); TOTAL BILIRUBIN 1.9 mg/dL (<0.1-1.0); TOTAL PROTEIN 4.9 g/dL (6.4-8.2)
[2018-05-22 04:00] VITALS: BP 158/77
--- NOTE | 2018-05-22 05:06 | NUR ---
ASSUMED CARE OF PT AT 1900. PT IS ALERT AND ORIENTED. VSS. PERRLA. NO COMPLAINTS OF PAIN. SOLOMON IN PLACE. PT IS IN SINUS RYTHM ON THE TELEMETRY. PT IS RESTING COMFORTABLY IN BED. RESPIRATIONS ARE EVEN AND NONLABORED. WILL CONTINUE TO MONITOR PT.
[2018-05-22 08:00] VITALS: BP 163/75
[2018-05-22 11:55] VITALS: BP 138/58
--- NOTE | 2018-05-22 14:48 | NUR ---
UPDATE CALLED AND FAXED TO [facility]. SHE STATED THEY WERE NOT ACCEPTING PTS OVER THE WEEKEND D/T HOLIDAY BUT COULD CONSIDER HIM ON FRIDAY IF CAN OBTAIN MEDICAID AUTH
[2018-05-22 16:41] VITALS: BP 134/68
--- NOTE | 2018-05-22 18:21 | NUR ---
VSS, ASSUMED CARE IN THE AM, ASSESSMENT PERFORMED AND CHARTED, FALL PRECAUTIONS IN PLACE AND CALL LIGHT IN REACH, PT IS A7O3-4. HAS SOLOMON IN PLACE AND IS DRAING, ON 2L NC PRN/HS. UP WITH ONE TO BSC. PT GOAL IS TO WORK WITH PT/OT AND SIT UP IN CHAIR, HE IS INCONT OF BM. HE DENIES ANY PAIN, PT HAS MET GOAL, HE WORKED WITH PT/OT AND WAS UP IN CHAIR FOR LUNCH, PT NEEDS PICC LINE TO BE D/C BUT NO ONE HAS NOT BEEN ABLE TO START AN IV. HOURLY ROUNDS COMPELETED AND WILL FOLLOW WITH PLAN OF CARE.
[2018-05-22 20:59] VITALS: BP 151/71
[2018-05-23] VITALS: BP 158/72; BP 162/73
--- NOTE | 2018-05-23 07:57 | NUR ---
PT IS ABLE TO COMMUNICATE HIS NEEDS TO STAFF EFFECTIVELY. HE HAS DENIED THE NEED FOR PAIN MEDICATION UP TO THIS TIME. CODE STATUS IS DNR. PT HAD DIALYSIS LAST EVENING; TOLERATED WELL. SOLOMON CATH REMOVED THIS AM PER MD ORDER FOR VOID TRIAL. PIV ACCESS OBTAINED, SO RIGHT SIDED CENTRAL LINE REMOVED THIS AM WELL PER MD REQUEST; PT TOLERATED BOTH PROCEDURES WELL AND TIPS INTACT FOR BOTH DEVICES. POSSIBLE DISCHARGE TO A SNF SOON.
[2018-05-23 08:00] VITALS: BP 161/79
[2018-05-23 12:00] VITALS: BP 99/54
--- NOTE | 2018-05-23 12:24 | NUR ---
VSS, ASSUMED CARE THIS AM, ASSESSMENT PERFORMED AND CHARTED, FALL PRECAUTIONS IN PLACE AND CALL LIGHT IN REACH, PT IS A&O4 BUT IS FORGETFUL, PT DENIES ANY PAIN, IS UP WITH ONE TO BSC, ON RA, TRACING SR ON THE MONITOR, HIS GOAL IS TO SIT UP IN CHAIR AND WORK WITH PT/OT AND BE ABLE TO PEE ON HIS OWN, PT HAS DAMILY AT BEDSIDE, WILL FOLLOW WITH PLAN OF CARE AND HOURLY ROUNDS.
--- NOTE | 2018-05-23 12:27 | NUR ---
CONTINUE TO FOLLOW, MET WITH PT AND KALPESH/FAMILY MEMBER. PT STATES FEELING IMPROVED. AGAIN DISCUSSED DC PLAN TO [facility], POSSIBLY FRIDAY. PT SEEMS AGREEABLE ALTHOUGH BECAME UPSET WHEN DISCUSSED WITH KALPESH AND HIM WHAT 'LTAC' MEANT. PT DIDN'T LIKE THAT IT WAS A 'ELECTRONICS PRODUCTION SUPERVISOR ACUTE CARE'. BECAME DEFENSIVE AND STATED 'I KNOW WHAT THOSE ARE. I ASKED TO GO TO [place] 3 DAYS AFTER I GOT HERE.' ATTEMPTED TO EXPLAIN RATIONALE AND NEED FOR LTAC FOR CONTINUED ACUTE CARE AND DIALYSIS WITH RE-EVAL OF KIDNEY FUNCTION WELL THERAPY NEEDS. PT TO TALK MORE WITH KALPESH. ENCOURAGED HIM TO TALK WITH AGAIN ALSO. PT DOES NOT QUALIFY FOR SNF HE DOESN'T HAVE MEDICARE. HAS POOR LIVING SITUATION WITH ELECTRICITY ONLY, NO HEAT OR WATER AND DOESN'T HAVE 24HR CARE AT HOME. WILL FOLLOW
[2018-05-23 15:13] LABS: HEMATOCRIT 25.4 % (42.0-52.0); HEMOGLOBIN 8.3 gm/dL (14.0-18.0); MCH 28.4 pg (26.0-34.0); MCHC 32.8 g/dL (28.0-37.0); MCV 86.6 fL (80.0-100.0); MPV 7.9 fl. (7.2-11.1); NUCLEATED RBCS 0 /100WBC; PLATELET COUNT* 286 thou/uL (150-400); RBC 2.93 mil/uL (4.50-6.00); RDW-CV 15.4 % (10.5-14.5)
[2018-05-23 15:20] LABS: ALBUMIN 1.5 g/dL (3.4-5.0); CALCIUM 7.7 mg/dL (8.5-10.1); POTASSIUM 4.3 mmol/L (3.5-5.1); TOTAL BILIRUBIN 0.8 mg/dL (<0.1-1.0); TOTAL PROTEIN 4.7 g/dL (6.4-8.2)
[2018-05-23 15:21] LABS: CREATININE 2.5 mg/dL (0.6-1.3)
[2018-05-23 15:42] LABS: ABSOLUTE LYMPHOCYTES 0.8 thou/uL (0.8-5.3); ABSOLUTE MONOCYTES 0.5 thou/uL (0.0-1.2); ABSOLUTE NEUTROPHILS 5.7 thou/uL (1.6-8.1); PLATELET ESTIMATE ADEQUATE
[2018-05-23 16:00] VITALS: BP 117/59
[2018-05-23 20:30] VITALS: BP 120/57
[2018-05-24] VITALS: BP 141/70
[2018-05-24 04:00] VITALS: BP 147/69
[2018-05-24 05:21] LABS: ABSOLUTE BASOPHILS 0.2 thou/uL (0.0-0.2); ABSOLUTE EOSINOPHILS 0.4 thou/uL (0.0-0.7); ABSOLUTE MONOCYTES 0.8 thou/uL (0.0-1.2); ABSOLUTE NEUTROPHILS 5.8 thou/uL (1.6-8.1); EOSINOPHILS 4.6 %; HEMATOCRIT 24.7 % (42.0-52.0); HEMOGLOBIN 8.2 gm/dL (14.0-18.0); LYMPHOCYTES 12.6 %; MCH 28.4 pg (26.0-34.0); MCHC 33.2 g/dL (28.0-37.0); MCV 85.4 fL (80.0-100.0); MONOCYTES 9.7 %; MPV 7.6 fl. (7.2-11.1); NUCLEATED RBCS 0 /100WBC; PLATELET COUNT* 345 thou/uL (150-400); POLYS 70.1 %; RBC 2.89 mil/uL (4.50-6.00); RDW-CV 15.6 % (10.5-14.5); WBC 8.2 thou/uL (4.0-11.0)
[2018-05-24 05:27] LABS: ALBUMIN 1.4 g/dL (3.4-5.0); CALCIUM 8.1 mg/dL (8.5-10.1); CREATININE 3.4 mg/dL (0.6-1.3); PHOSPHORUS* 3.4 mg/dL (2.5-4.9); POTASSIUM 3.4 mmol/L (3.5-5.1)
[2018-05-24 05:43] LABS: PREALBUMIN 12.3 mg/dL (18.0-35.7)
[2018-05-24 05:49] LABS: ALBUMIN 1.4 g/dL (3.4-5.0); CALCIUM 7.7 mg/dL (8.5-10.1); CREATININE 3.5 mg/dL (0.6-1.3); POTASSIUM 3.4 mmol/L (3.5-5.1); TOTAL BILIRUBIN 0.6 mg/dL (<0.1-1.0); TOTAL PROTEIN 5.1 g/dL (6.4-8.2)
--- NOTE | 2018-05-24 07:55 | NUR ---
PT IS ABLE TO COMMUNICATE HIS NEEDS TO STAFF WITH MINOR DIFFICULTY; HIS VOICE IS HOARSE AND HE IS DROWSY AT TIMES. HE HAS DENIED THE NEED FOR PAIN MEDICATION UP TO THIS TIME. PT HAS NOT YET VOIDED ON HIS OWN, UP TO THIS TIME; VOIDING TRIAL CONTINUES, PT MONITORED WITH BLADDER SCANS AND STRAIGHT CATHED WHEN NEEDED PER ORDER.
[2018-05-24 08:17] VITALS: BP 155/75
[2018-05-24 12:47] VITALS: BP 123/58
[2018-05-24 16:00] VITALS: BP 114/58
--- NOTE | 2018-05-24 18:45 | NUR ---
PT ABLE TO URINATE 30 ML ON BSC AFTER BLADDER SCAN OF 555ML. PT STRAIGHT CATHED WITH 400ML YELLOW URINE. PT DOES NOT WANT INDWELLING CATHETER. PT UP TO CHAIR WITH MIN ASSIST X1. L SIDE WEAKNESS. TREMORS BILATERAL ARMS. PT HAD C/O PAIN L SIDE OF NECK THAT WAS RELIEVED WITH TYLENOL. PT ABLE TO MAKE NEEDS KNOWN, CALL LIGHT IN REACH
[2018-05-24 19:15] VITALS: BP 137/61
--- NOTE | 2018-05-24 23:32 | NUR ---
PT ASSESSMENT COMPLETE. VSS. TRACING SR ON MONITOR. PT DENIED PAIN AT TIME OF ASSESSMENT. PT DID TRANSFER FROM BED TO CHAIR WITH MINIMAL ASSIST AND GAIT BELT. PT ALSO URINATED, PRE VOID BLADDER SCAN 196ML, POST VOID SCAN 134ML. PT DID LATER C/O LEFT SHOULDER PAIN, PRN TYLENOL GIVEN WITH SOME RESULTS. PT CURRENTLY RESTING IN BED WITH EYES CLOSED. PT DENIES ANY FURTHER NEEDS AT THIS TIME. CLWR.
[2018-05-25] VITALS: BP 136/65
[2018-05-25 04:00] VITALS: BP 101/81
--- NOTE | 2018-05-25 04:12 | NUR ---
PT UP TO BSC FOR BM. PT BLADDER SCANNED PRIOR, SHOWING 409ML. PT WAS UNABLE TO URINATE ON HIS OWN AND DENIES ANY URGE TO URINATE. PT STRAIGHT CATHED, 420ML OF CLUDY LIGHT YELLOW URINE RETURNED. PT TOLERATED WELL.
[2018-05-25 04:56] LABS: ALBUMIN 1.5 g/dL (3.4-5.0); CALCIUM 7.8 mg/dL (8.5-10.1); CREATININE 4.2 mg/dL (0.6-1.3); MAGNESIUM 1.5 mg/dL (1.8-2.4); POTASSIUM 4.3 mmol/L (3.5-5.1)
--- NOTE | 2018-05-25 05:38 | NUR ---
PT RESTLESS FOR MOST OF THIS SHIFT. PT IS ALERT & ORIENTED BUT CAN BECOME CONFUSED &/OR HOSTILE AT TIMES. PT HAS MULTIPLE SOFT BM'S THIS SHIFT AND DID REQUIRE TO BE STRAIGHT CATHED HE WAS UNABLE TO URINATE ON HIS OWN AND DENIES URGE TO URINATE. NO OTHER CONCERNS AT THIS TIME. CLWR.
[2018-05-25 08:00] VITALS: BP 146/72
--- NOTE | 2018-05-25 12:33 | NUR ---
ASSUME PT CARE AT 0730 REPORT RECEIVED FROM NURSE. PT IS MELIDA CHIU ON SOLICITOR PATENT. DR PIRES ORDER NEHA PLACEMEMT FOR PT WEL RENAL DIET. PT LEFT FLOOR AT 1100 AM TO DIALYSIS. SOLOMON TO BE IN PLACE WHEN PT IS BACK. PT CONSUMED BREAKFAST. MEDICATIONS ADMINISTERED ORDERED. WILL CONTINUE TO MONITOR
--- NOTE | 2018-05-25 14:15 | NUR ---
CONTINUE TO FOLLOW, DISCUSSED WITH LUIS EDMONDS AND ALLEN. ANTICIPATE DC WED TO LTAC. CALLED AND FAXED UPDATED CLINICAL TO [facility]. ASKED THAT LIASON COME MEET WITH PT TO DISCUSS LTAC WITH HIM TO ANSWER QUESTIONS. WILL FOLLOW
[2018-05-25 14:23] VITALS: BP 141/60
--- NOTE | 2018-05-25 15:22 | NUR ---
BACK FROM DIALYSIS AT 1430. VSS. ATE LUNCH. ACCUCHECK AND INSULIN GIVEN. SOLOMON CATHETER IN AT 1500. 400 CC OF URINE RESIDUAL. PICTURE OF LEFT KNEE SCAR PUT IN THE CHART. WOUND CARE PERFORMED AT BEDSIDE. WILL CONTIUE TO MONITOR,
[2018-05-26] VITALS: BP 155/69
[2018-05-26 04:00] VITALS: BP 145/76
[2018-05-26 05:32] LABS: ALBUMIN 1.5 g/dL (3.4-5.0); CALCIUM 7.9 mg/dL (8.5-10.1); POTASSIUM 3.9 mmol/L (3.5-5.1); TOTAL BILIRUBIN 0.5 mg/dL (<0.1-1.0); TOTAL PROTEIN 5.5 g/dL (6.4-8.2)
[2018-05-26 05:35] LABS: CREATININE 3.1 mg/dL (0.6-1.3)
[2018-05-26 05:49] LABS: ABSOLUTE BASOPHILS 0.2 thou/uL (0.0-0.2); ABSOLUTE EOSINOPHILS 0.3 thou/uL (0.0-0.7); ABSOLUTE LYMPHOCYTES 1.2 thou/uL (0.8-5.3); ABSOLUTE MONOCYTES 0.8 thou/uL (0.0-1.2); ABSOLUTE NEUTROPHILS 5.7 thou/uL (1.6-8.1); BASOPHILS 2.6 %; HEMATOCRIT 25.1 % (42.0-52.0); HEMOGLOBIN 8.4 gm/dL (14.0-18.0); LYMPHOCYTES 14.1 %; MCH 29.3 pg (26.0-34.0); MCHC 33.6 g/dL (28.0-37.0); MCV 87.4 fL (80.0-100.0); MONOCYTES 9.8 %; MPV 7.7 fl. (7.2-11.1); NUCLEATED RBCS 0 /100WBC; PLATELET COUNT* 346 thou/uL (150-400); POLYS 69.5 %; RBC 2.87 mil/uL (4.50-6.00); RDW-CV 16.1 % (10.5-14.5); WBC 8.2 thou/uL (4.0-11.0)
--- NOTE | 2018-05-26 06:54 | NUR ---
VITALS WNL. SEE MAR. SEE CHARTING. FALL PRECATUIONS IN PLACE. HOURLY ROUNDING FOR SAFETY.
[2018-05-26 08:00] VITALS: BP 141/75
[2018-05-26 12:26] VITALS: BP 138/65
[2018-05-26 16:00] VITALS: BP 133/64
--- NOTE | 2018-05-26 18:19 | NUR ---
ASSUMED PT CARE PT IS AOX4. APPLE ON STAVE LOG RIPSAW OPERATOR. ON RA. OUT OF BED TO CHAIR WITH PT. NEHA PATENT. ACCUCHECK AND INSULIN GIVEN. POSSIBLE DC TOMORROW
[2018-05-27] VITALS: BP 141/63
[2018-05-27 04:00] VITALS: BP 129/65
[2018-05-27 05:25] LABS: ABSOLUTE BASOPHILS 0.1 thou/uL (0.0-0.2); ABSOLUTE EOSINOPHILS 0.3 thou/uL (0.0-0.7); ABSOLUTE LYMPHOCYTES 1.4 thou/uL (0.8-5.3); ABSOLUTE MONOCYTES 0.9 thou/uL (0.0-1.2); ABSOLUTE NEUTROPHILS 6.1 thou/uL (1.6-8.1); BASOPHILS 1.6 %; EOSINOPHILS 3.8 %; HEMATOCRIT 24.2 % (42.0-52.0); LYMPHOCYTES 15.7 %; MCH 28.3 pg (26.0-34.0); MCHC 32.9 g/dL (28.0-37.0); MONOCYTES 9.9 %; MPV 7.6 fl. (7.2-11.1); NUCLEATED RBCS 0 /100WBC; PLATELET COUNT* 400 thou/uL (150-400); RBC 2.82 mil/uL (4.50-6.00); RDW-CV 16.5 % (10.5-14.5); WBC 8.8 thou/uL (4.0-11.0)
[2018-05-27 05:34] LABS: ALBUMIN 1.5 g/dL (3.4-5.0); CALCIUM 7.8 mg/dL (8.5-10.1); CREATININE 3.6 mg/dL (0.6-1.3); POTASSIUM 4.3 mmol/L (3.5-5.1); TOTAL BILIRUBIN 0.5 mg/dL (<0.1-1.0); TOTAL PROTEIN 5.5 g/dL (6.4-8.2)
--- NOTE | 2018-05-27 06:11 | NUR ---
VITALS WNL. SEE MAR. SEE CHARTING. FALL PRECAUTIONS IN PLACE. HOURLY ROUNDING FOR SAFETY.
--- NOTE | 2018-05-27 07:54 | OP ---
[address] [address] OPERATIVE REPORT Name: TIANNA GALEANA Room: [address] IN M.R.#: [id number] Admission: 05/01/18 Attend Phys: Marly Manning MD Discharge: Date of : 55 Report #: [id number] THIS REPORT FOR: //name// CC: [facility] physician/PCP Marly Manning DATE OF SERVICE: 05/21/2018 PREOPERATIVE DIAGNOSIS: End-stage renal disease. POSTOPERATIVE DIAGNOSIS: End-stage renal disease. PROCEDURE 1. Tunneled dialysis catheter placement, left internal jugular vein. 2. Ultrasound guidance for venous access, left internal jugular vein with image saved. 3. Removal of temporary dialysis catheter, right neck. SURGEON: Omero Pope MD MARKET RESEARCH WORKER: Sreekanth Reaves, hand frame surgical elastic knitter. COMPLICATIONS: None. ESTIMATED BLOOD LOSS: 10 mL. SPECIMEN: Temporary catheter removed in its entirety. ANESTHESIA: Local sedation. INDICATION FOR PROCEDURE: The patient is a very pleasant 62-year-old white male who presented with cardiac arrest earlier this month. He has required dialysis during his hospitalization. He is pending discharge to rehab; however, he will require continued dialysis. We have been asked to place a tunneled dialysis catheter. Informed consent was obtained from the patient with risks including but not limited to bleeding, infection, need for further surgery, pain, , heart attack, stroke, pneumothorax. The patient understood these risks and was agreeable to proceed. DESCRIPTION OF PROCEDURE: The patient was taken to the angio suite. He was placed in supine position. Timeout was performed. Left neck and chest were prepped and draped. Under ultrasound guidance with an image saved, I cannulated the left internal jugular vein without difficulty. I did infuse 10 mL of 1% lidocaine throughout the case for local anesthetic. I used a Seldinger technique to change out for a second wire, sequential dilators and finally the catheter. I assured the correct positioning of the [place] [address] OPERATIVE REPORT Name: TIANNA GALEANA Room: [address] IN [facility]#: [id number] Admission: 05/01/18 Attend Phys: Marly Manning MD Discharge: Date of : 55 Report #: [id number] throughout the procedure. I then tunneled the catheter out onto the anterior chest wall. I trimmed the catheter to the appropriate length and placed the ports. Both ports flushed without difficulty. I packed the catheter with 1000 unit per mL heparin. I closed the neck incision with a Monocryl stitch and secured the catheter to the anterior chest wall with the same. I dressed the catheter in standard fashion. I then turned my attention to the right neck. I removed the sutures. I removed the catheter in its entirety. We held pressure for 5 minutes. There was no bleeding or hematoma. The patient tolerated procedures well and was taken alert, awake to recovery room in good condition. All needle and instrument counts were correct at the end of the case. <ELECTRONICALLY SIGNED> By: Eduardo Turpin DO 05/27/18 [id number] Pope MD /nt
[2018-05-27 07:58] VITALS: BP 146/67
--- NOTE | 2018-05-27 10:27 | NUR ---
ASSUMED PT CARE REPORT RECEIVED FROM NURSE. PT IS AOX4 STACHY ON PROJECTION CAMERA OPERATOR. ATE BREAKFAST INSULIN GIVEN. PT LEFT FLOOR TO GO TO DIALYSIS AT 0930. PT VOICED THAT SHE WANTED TO BE TRANSFERED TO A FACILITY CLOSE TO [facility]. COMMUNICATED TO CASE MANAGEMENT. DR VILLA TO SEE PT THIS AM. SAIMA CONTINUE TO MONITOR.
--- NOTE | 2018-05-27 10:27 | NUR ---
RECEIVED CALL FROM NURSE THAT PT WANTING TO GO TO [place] [place]. PT STILL IN NEED OF DIALYSIS, LTAC IS BEST OPTION PER DID PLACE CALL TO [place], THEY DO NOT TAKE PTS ON DIALYSIS. DR VILLA UPDATED. HE WILL TALK TO PT. CALLED AND FAXED UPDATE CLINICAL TO [facility] AND MADE AWARE PT MAY DC TO THEM TODAY. SHE STATED REP DID COME OUT TO TALK WITH PT ON FRIDAY AND HE GAVE HER SOME 'PUSH BACK.' AWAIT DR VILLA TO TALK WITH PT
[2018-05-27] MEDS ORDERED: ALBUTEROL SULFAT2 MG PO (14:00)
[2018-05-27] MEDS ORDERED: CEFUROXIME250 MG PO (14:07)
[2018-05-27] MEDS ORDERED: HUMALOG100 UNIT/1 SUBQ (14:11)
[2018-05-27] MEDS ORDERED: LOPRESSOR25 PO (14:15)
[2018-05-27] MEDS ORDERED: PROTONIX40 M1 PO (14:21)
[2018-05-27 14:31] VITALS: BP 146/67
[2018-05-27 14:52] VITALS: BP 146/67
[2018-05-27 16:45] VITALS: BP 140/65
--- NOTE | 2018-05-27 17:40 | NUR ---
pt ready to dc to [facility]. medicinal plant picker [facility] report called and given to Shikha at 1741. picture of wound taken placed in chart. dc instruction placed in package. will continue monitoring
--- NOTE | 2018-05-27 20:17 | NUR ---
REPORT GIVEN TO EMS-TRANSPORT AND PATIENT LEFT UNIT AT 2009. VITAL SIGNS STABLE AT THIS TIME
--- NOTE | 2018-05-28 08:35 | NUR ---
CALL TO [facility] TO NOTIFY OF DC DISPOSITION. ALSO GAVE HER NUMBER FOR PT'S PUBLIC HEALTH MICROBIOLOGIST AT [facility] [place] [phone]
--- NOTE | 2018-05-28 12:02 | CON ---
[address] [address] CONSULTATION Name: TIANNA GALEANA Room: [address] IN M.R.#: [id number] Admission: 05/01/18 Attend Phys: Marly Manning MD Discharge: 05/27/18 Date of : 55 Report #: [id number] THIS REPORT FOR: //name// CC: FAM physician/PCP Marly Manning MD [facility] DATE OF SERVICE: 05/21/2018 REFERRING PHYSICIAN: Marly Manning MD REASON FOR CONSULTATION: 1. Anemia, which appears to be multifactorial. 2. Heme-positive stools without any history of melena or hematochezia. 3. Obstructive jaundice with rising bilirubin -- magnetic resonance cholangiopancreatography revealed poor filling of the distal common bile duct. 4. Status post cardiac arrest with multisystem organ failure, which is improving. 5. Non-ST elevation myocardial infarction. 6. Acute renal failure, requiring hemodialysis. 7. Hypertension. RECOMMENDATIONS: 1. Given the patient's rising bilirubin and alkaline phosphatase with an abnormal MRCP and the fact that the patient is just recovering from cardiac arrest, I do not feel this is a good idea for us to attempt an ERCP under general endotracheal anesthesia. Instead, I spoken with Dr. Lai Damon of Interventional Radiology who believes that the best option would be to perform a PTC (percutaneous transhepatic cholangiography) to establish biliary drainage and to palliate this biliary obstruction and does prevent life threatening cholangitis. We will proceed with an abdominal ultrasound tomorrow to confirm dilated bile ducts, repeat his liver function tests and have him proceed with the same tomorrow. 2. With regards to his anemia, unless he has any overt melena or hematochezia, we will just have to place him on a PPI for stress gastritis or stress ulceration, hold off on any endoscopic studies of his upper or lower GI tract at this time given the fact he is just recovering from a cardiac arrest. If, however, he should develop melena or hematochezia, we can revisit this idea of proceeding with endoscopic studies for life-threatening issues. 3. Eventually the patient will need to undergo endoscopic studies prior to eventual cholecystectomy, but for now there is no indication needs, cholecystostomy tube placed. I have discussed the plans with the patient as well and he is agreeable to the same. A total of one hour was used in reviewing [place] [id number] CONSULTATION Name: TIANNA GALEANA Room: [address]#: [id number] Admission: 05/01/18 Attend Phys: Marly Manning MD Discharge: 05/27/18 Date of : 55 Report #: [id number] x-rays, chart, etc. to complete this GI consultation. HISTORY OF PRESENT ILLNESS: The patient is a 62-year-old white male who is currently recovering from cardiac arrest for whom we are asked to see for heme-positive stool. He was seen during the initial hospital stay because of the dilated biliary tree with GI consultation by my partner, Dr. Knox, for evaluation of the same. The patient is currently recovering from his cardiac arrest and we are asked to see him because of progressive anemia. He denies any complaints of any dysphagia, odynophagia, chronic reflux or postprandial pain. He has not had any problems with his bowels or bowel frequency. He has not had any black stools, tarry stools or blood in the stools. He is not the best of historians, but cannot recall ever having had undergone any studies of his upper or lower GI tract in the past. He has received a total of 4 units of blood products during his hospital stay, which has been since 05/01/2018. ALLERGIES: ATORVASTATIN. MEDICATIONS: At home include amlodipine, tamsulosin, pravastatin, insulin, Tylenol, senna products p.r.n., lisinopril, loratadine, niacin, magnesium, carvedilol. PAST MEDICAL HISTORY: Significant for hypertension, diabetes and now coronary artery disease. He had no previous surgical history. He has BPH as well and apparently some constipation issues. SOCIAL HISTORY: He does smoke, does not drink alcohol. FAMILY HISTORY: Negative. PHYSICAL EXAMINATION: GENERAL: Revealed an ill-appearing 62-year-old gentleman who is awake and alert. CARDIOPULMONARY EXAMINATION: Revealed a regular rate and rhythm. LUNGS: Clear. ABDOMEN: Soft and nontender. No rebound or guarding noted. LABORATORY DATA: From the revealed a white count 5.0, hemoglobin 7.9, platelet count 200,000, MCV is 83.5 and RDW 16.2. By comparison, his hemoglobin was 10 on admission. His sodium 140, potassium 3.9, chloride 102, bicarbonate is 32, his BUN is 17, creatinine 3.1. His total bilirubin is 2.5, alkaline phosphatase 529, his AST is 115, ALT 73. His albumin is 1.3. CT scan of the abdomen with IV contrast performed on the was unable to detect intrahepatic ductal dilation, appeared to have cholelithiasis with abnormal gallbladder wall thickening. MRCP performed on the 05/18/[address] [place] [address] CONSULTATION Name: KERVINTIANNA TEMPLETON David Room: [address]#: [id number] Admission: 05/01/18 Attend Phys: Marly Manning MD Discharge: 05/27/18 Date of : 55 Report #: [id number] reviewed and revealed limited study secondary to patient motion artifact. There is evidence for cholelithiasis, but no significant intra and extrahepatic ductal dilation. DISCUSSION: At the present time, it is unclear whether or not the patient has biliary obstruction or not. With regards to him undergoing any studies of his GI tract, we will hold off on the same secondary to recent cardiac arrest, non-STEMI. We will have Interventional Radiology take a look at the patient tomorrow and make further recommendations thereafter. <ELECTRONICALLY SIGNED> By: Glenn Graff DO 05/28/18 1202 [id number] Graff DO /nt
== END 2018-05-27 20:18 | DRG 870 ==
LOC: M.ERS 16:30 → M.TBA-ER 18:51 → M.ICU 18:51 → M.2W 05-12 16:23
PROVIDERS: Emergency Medicine; Emergency Medicine Emergency Medical Services; Internal Medicine; Internal Medicine Gastroenterology; Internal Medicine Nephrology; Internal Medicine Pulmonary Disease; Specialist; ADMIT Internal Medicine
PROC: 0BH17EZ Insertion of Endotracheal Airway into Trachea, Via Natural or Artificial Opening (ICD-10-PCS; principal; 2018-05-01)
PROC: 5A1955Z Respiratory Ventilation, Greater than 96 Consecutive Hours (ICD-10-PCS; 2018-05-01)
PROC: 03HY32Z Insertion of Monitoring Device into Upper Artery, Percutaneous Approach (ICD-10-PCS; 2018-05-01)
PROC: 02HV33Z Insertion of Infusion Device into Superior Vena Cava, Percutaneous Approach (ICD-10-PCS; 2018-05-01)
PROC: 30233N1 Transfusion of Nonautologous Red Blood Cells into Peripheral Vein, Percutaneous Approach (ICD-10-PCS; 2018-05-04)
PROC: 30233R1 Transfusion of Nonautologous Platelets into Peripheral Vein, Percutaneous Approach (ICD-10-PCS; 2018-05-05)
PROC: B2141ZZ Fluoroscopy of Right Heart using Low Osmolar Contrast (ICD-10-PCS; 2018-05-08)
PROC: B244ZZZ Ultrasonography of Right Heart (ICD-10-PCS; 2018-05-08)
PROC: 02H633Z Insertion of Infusion Device into Right Atrium, Percutaneous Approach (ICD-10-PCS; 2018-05-08)
PROC: 5A1D70Z Performance of Urinary Filtration, Intermittent, Less than 6 Hours Per Day (ICD-10-PCS; 2018-05-13)
PROC: 5A1D70Z Performance of Urinary Filtration, Intermittent, Less than 6 Hours Per Day (ICD-10-PCS; 2018-05-18)
PROC: 5A1D70Z Performance of Urinary Filtration, Intermittent, Less than 6 Hours Per Day (ICD-10-PCS; 2018-05-20)
PROC: B244ZZZ Ultrasonography of Right Heart (ICD-10-PCS; 2018-05-21)
PROC: 0JH63XZ Insertion of Tunneled Vascular Access Device into Chest Subcutaneous Tissue and Fascia, Percutaneous Approach (ICD-10-PCS; 2018-05-21)
PROC: 02H633Z Insertion of Infusion Device into Right Atrium, Percutaneous Approach (ICD-10-PCS; 2018-05-21)
PROC: B2141ZZ Fluoroscopy of Right Heart using Low Osmolar Contrast (ICD-10-PCS; 2018-05-21)
PROC: 02PAX3Z Removal of Infusion Device from Heart, External Approach (ICD-10-PCS; 2018-05-21)
PROC: 5A1D70Z Performance of Urinary Filtration, Intermittent, Less than 6 Hours Per Day (ICD-10-PCS; 2018-05-22)
PROC: 5A1D70Z Performance of Urinary Filtration, Intermittent, Less than 6 Hours Per Day (ICD-10-PCS; 2018-05-27)
DX: A41.9 Sepsis, unspecified organism (principal); I46.9 Cardiac arrest, cause unspecified; E10.10 Type 1 diabetes mellitus with ketoacidosis without coma; J96.01 Acute respiratory failure with hypoxia; J69.0 Pneumonitis due to inhalation of food and vomit; N17.0 Acute kidney failure with tubular necrosis; I21.4 Non-ST elevation (NSTEMI) myocardial infarction; G92 Toxic encephalopathy; N18.6 End stage renal disease; M62.82 Rhabdomyolysis; G93.1 Anoxic brain damage, not elsewhere classified; K92.2 Gastrointestinal hemorrhage, unspecified; K83.09 Other cholangitis; R65.20 Severe sepsis without septic shock; I48.91 Unspecified atrial fibrillation; T68.XXXA Hypothermia, initial encounter; I50.9 Heart failure, unspecified; D64.9 Anemia, unspecified; E78.00 Pure hypercholesterolemia, unspecified; E87.6 Hypokalemia; F17.210 Nicotine dependence, cigarettes, uncomplicated; E10.22 Type 1 diabetes mellitus with diabetic chronic kidney disease; D69.6 Thrombocytopenia, unspecified; Z60.2 Problems related to living alone; K80.20 Calculus of gallbladder without cholecystitis without obstruction; K83.8 Other specified diseases of biliary tract; E78.5 Hyperlipidemia, unspecified; K59.00 Constipation, unspecified; N40.1 Benign prostatic hyperplasia with lower urinary tract symptoms; R33.8 Other retention of urine; Z53.29 Procedure and treatment not carried out because of patient's decision for other reasons; Z88.8 Allergy status to other drugs, medicaments and biological substances; Z83.3 Family history of diabetes mellitus

== ENCOUNTER 2018-06-01 20:23 | Observation (INO) | payer MEDICAID ==
[~2018-06-01] VITALS: Ht 165.1 cm; Wt 57.6 kg
[~2018-06-01 20:23] MED LIST changes: +ALBUTEROL SULFAT2 MG PO; +CEFUROXIME250 MG PO; +FLOMAX0.4 MG PO; +LOPRESSOR25 PO; +NORVASC10 MG PO; +PRAVACHOL40 MG PO; +PROTONIX40 M1 PO
[2018-06-01 22:30] VITALS: BP 172/83
[2018-06-02 04:07] LABS: ABSOLUTE BASOPHILS 0.2 thou/uL (0.0-0.2); ABSOLUTE EOSINOPHILS 0.2 thou/uL (0.0-0.7); ABSOLUTE LYMPHOCYTES 0.9 thou/uL (0.8-5.3); ABSOLUTE MONOCYTES 0.7 thou/uL (0.0-1.2); ABSOLUTE NEUTROPHILS 5.7 thou/uL (1.6-8.1); EOSINOPHILS 2.5 %; HEMOGLOBIN 7.8 gm/dL (14.0-18.0); MCH 27.1 pg (26.0-34.0); MCHC 32.5 g/dL (28.0-37.0); MCV 83.3 fL (80.0-100.0); MONOCYTES 8.5 %; MPV 7.8 fl. (7.2-11.1); NUCLEATED RBCS 0 /100WBC; PLATELET COUNT* 369 thou/uL (150-400); RBC 2.89 mil/uL (4.50-6.00); WBC 7.7 thou/uL (4.0-11.0)
[2018-06-02 04:20] VITALS: BP 156/85
[2018-06-02 04:27] LABS: ALBUMIN 1.6 g/dL (3.4-5.0); CALCIUM 7.8 mg/dL (8.5-10.1); CREATININE 2.3 mg/dL (0.6-1.3); PHOSPHORUS* 4.6 mg/dL (2.5-4.9); POTASSIUM 4.6 mmol/L (3.5-5.1)
[2018-06-02 07:40] VITALS: BP 168/95
[2018-06-02 11:28] VITALS: BP 168/95
[2018-06-02 13:29] VITALS: BP 168/95
--- NOTE | 2018-06-02 14:46 | OP ---
[address] [address] OPERATIVE REPORT Name: TIANNA GALEANA Room: [address] IN M.R.#: [id number] Admission: 06/01/18 Attend Phys: Kev Samaniego Discharge: Date of : 55 Report #: [id number] THIS REPORT FOR: //name// CC: STEPHANIE physician/PCP Abe Vasques DATE OF SERVICE: 06/02/2018 PREOPERATIVE DIAGNOSIS: End-stage renal disease with dislodged left internal jugular tunneled dialysis catheter. POSTOPERATIVE DIAGNOSIS: End-stage renal disease with dislodged left internal jugular tunneled dialysis catheter. OPERATION: Repair of left IJ TDC. IMPLANTS: None. SPECIMENS: None. COMPLICATIONS: None. BLOOD LOSS: None. FLUIDS: None. FINDINGS: The venous port from the tunneled dialysis catheter was noted to be dislodged, but catheter was still in good position. It just required a simple repair. After replacement of the venous port, both ports aspirated and flushed well and both ports were packed with concentrated heparin. CLINICAL HISTORY: The patient is a 62-year-old man with end-stage renal disease, has been dialyzing through a left IJ tunneled dialysis catheter. It was placed about a week ago. While on dialysis, the venous port dislodged and broke from the catheter. A clamp was applied to obtain hemostasis. He was brought in today to repair the catheter. DESCRIPTION OF PROCEDURE: After informed consent was obtained, the patient was taken to the angio suite, placed on the angio bed in the supine position. His left neck and catheter were prepped and draped in the usual sterile fashion. Full timeout was performed identifying correct patient and procedure. Next, a new venous port was obtained from [facility] kits. The catheter was noted to be in good position. The arterial port was still intact. The venous port was then applied to the catheter. Both ports were aspirated and flushed with heparinized saline. They were both then packed with concentrated heparin 1000 units/mL. Sterile dressing was applied to the catheter. [place] [address] OPERATIVE REPORT Name: TIANNA GALEANA Room: [address] IN [facility]#: [id number] Admission: 06/01/18 Attend Phys: Kev Samaniego Discharge: Date of : 55 Report #: [id number] immediately for dialysis needs. He tolerated the procedure well and was transferred back to his room in stable condition. <ELECTRONICALLY SIGNED> By: Eduardo Turpin DO 06/02/18 1446 1135 [id number] Turpin DO /nt
--- NOTE | 2018-06-03 09:28 | CON ---
[address] [address] CONSULTATION Name: TIANNA GALEANA Room: [address] Malena Alvarado#: [id number] Admission: 06/01/18 Attend Phys: Kev Samaniego Discharge: 06/02/18 Date of : 55 Report #: [id number] THIS REPORT FOR: //name// CC: STEPHANIE physician/PCP Abe Vasques REASON FOR CONSULTATION: End-stage kidney disease. HISTORY OF PRESENT ILLNESS: A 62-year-old gentleman who was hospitalized here previously and was eventually transferred to [facility] for rehabilitation is admitted with a fractured tunneled dialysis catheter. He was hospitalized at this facility last month with cardiopulmonary arrest having gone into PEA and requiring hemodialysis. He has been on dialysis, I believe since 05/08/2018. He is scheduled to undergo a catheter exchange later today. Presently has no complaints. REVIEW OF SYSTEMS: Constitutional, psych, heme, eyes, ENT, respiratory, cardiac, GI, , endocrine, all negative except as documented above. PAST MEDICAL HISTORY: Acute kidney injury, cardiopulmonary arrest April 2018, diabetes, hypertension, dyslipidemia. MEDICATIONS: Reviewed. FAMILY HISTORY: Not pertinent in this 62-year-old gentleman. SOCIAL HISTORY: He currently resides at [facility] facility. PHYSICAL EXAMINATION: VITAL SIGNS: Blood pressure 168/95, pulse 91, temperature 37.1. GENERAL: No acute distress. EYES: Extraocular movements intact. EARS: Externally normal. CARDIOVASCULAR: Regular rate. LUNGS: No crackles. ABDOMEN: Soft. LYMPHATICS: No pitting edema. PSYCHIATRIC: Awake, alert. LABORATORY DATA: White cell count 7.7, hemoglobin 7.8, platelets 369. Sodium 137, potassium 4.6, chloride 100, bicarbonate 31, BUN 28, creatinine 2.3, glucose 307, calcium 7.8, phosphorus 4.6, albumin 1.6. ASSESSMENT: 1. Acute kidney injury, on hemodialysis since 05/08/2018. 2. History of cardiopulmonary arrest and pulseless electrical activity April 2018. [place] [address] CONSULTATION Name: KERVINTIANNA T Room: [address] Malena Alvarado#: [id number] Admission: 06/01/18 Attend Phys: Kev Samaniego Discharge: 06/02/18 Date of : 55 Report #: [id number] 3. Insulin-dependent diabetes type 1. 4. Chronic kidney disease stage 3, April 2017, creatinine was 1.5. 5. Fractured dialysis catheter. 6. History of hypertension. PLAN: The patient will undergo catheter exchange today. I discussed the case with Sonia Loya from Vascular Surgery. Next dialysis tomorrow. If he remains at this facility, we can do that here tomorrow, otherwise he could potentially transfer back to [facility] today and undergo normal hemodialysis tomorrow. Thank you for requesting my opinion in the care and management of this patient. <ELECTRONICALLY SIGNED> By: Francois Liang MD 06/03/18 0928 1101 [id number] Liang MD /nt
== END 2018-06-02 17:10 ==
LOC: M.3W 20:23
PROVIDERS: ADMIT Internal Medicine
DX: T82.41XA Breakdown (mechanical) of vascular dialysis catheter, initial encounter (principal); E11.22 Type 2 diabetes mellitus with diabetic chronic kidney disease; I12.0 Hypertensive chronic kidney disease with stage 5 chronic kidney disease or end stage renal disease; N18.6 End stage renal disease; E78.00 Pure hypercholesterolemia, unspecified; N17.9 Acute kidney failure, unspecified; E11.10 Type 2 diabetes mellitus with ketoacidosis without coma; E87.6 Hypokalemia; E87.1 Hypo-osmolality and hyponatremia; E11.65 Type 2 diabetes mellitus with hyperglycemia; Z79.4 Long term (current) use of insulin; Z99.2 Dependence on renal dialysis; Z79.899 Other long term (current) drug therapy; Z87.891 Personal history of nicotine dependence